=== PATIENT | male | born 1960 | race Caucasian/White ===

== ENCOUNTER 2019-06-13 11:02 | Outpatient (CLI) | payer OTHER ==
[2019-06-13 17:59] LABS: SARS-CoV-2 MS2 Positive; SARS-CoV-2 N Gene Negative; SARS-CoV-2 S Gene Negative; SARS-CoV-2 orf1ab Negative
== END 2019-06-13 11:03 | disposition home or self-care (01) ==
LOC: LABBT 11:02
PROVIDERS: ATTEND Plastic Surgery
DX: Z11.59 Encounter for screening for other viral diseases (principal); C44.90 Unspecified malignant neoplasm of skin, unspecified
CPT/HCPCS: 87635; U0002

== ENCOUNTER 2019-06-14 12:05 | Day surgery (SDC) | payer OTHER ==
[2019-06-12 10:52] VITALS: BMI 42.2
[~2019-06-14 12:05] MED LIST: Dexamethasone 20 MG/5 ML VIAL ONE; EPHEDRINE 25 MG/5 ML SYRINGE ONE; Glycopyrrolate 0.2 MG/ML 5 ML SYRINGE ONE; Lidocaine 1% PF 5 ML VIAL ONE; Ondansetron PF 4 MG/2 ML Vial ONE; PROPOFOL 200 MG/20 ML VIAL ONE; Rocuronium Bromide 10 MG/ML (10ML VIAL) ONE; Succinylcholine Chloride 20 MG/ML 10 ml SYRINGE FS ONE
[2019-06-14] MEDS ORDERED: Bacitracin Zinc Ointment 30 gm TUBE ONE (12:21)
[2019-06-14] MEDS ORDERED: Bupivacaine 0.25% HCL 30 ML VIAL ONE (12:21)
[2019-06-14] MEDS ORDERED: EPINEPHrine 1 MG/ML AMP ONE (12:21)
[2019-06-14] MEDS ORDERED: Heparin 5,000 UNITS/ML VIAL ONE (13:16)
[2019-06-14] MEDS ORDERED: Midazolam HCl 2 mg/2 ml Vial ONE (13:46)
[2019-06-14] MEDS ORDERED: Fentanyl 100 MCG/2 ML VIAL ONE ×2 (13:46→15:15)
[2019-06-14] MEDS ORDERED: PROPOFOL 0 ML ONE (16:13)
--- NOTE | 2019-06-16 05:09 | OP ---
DATE OF PROCEDURE: 06/14/2019 PREOPERATIVE DIAGNOSES: 1. Basal cell carcinoma, right scalp (C44.41). 2. Basal cell carcinoma, left chest (C44.519). 3. Basal cell carcinoma, right shoulder (C44. 612). PROCEDURES: 1. Radical excision of basal cell carcinoma, right scalp (8.5 cm including adequate margins). 2. Split-thickness skin graft, right scalp. 3. Application of wound VAC, right scalp. 4. Wide excision basal cell carcinoma, left chest (7.2 cm including adequate margins). 5. Intermediate closure of right shoulder (9 cm). 6. Intermediate closure of left chest (14 cm). 7. Wide excision of basal cell carcinoma of right shoulder (3.5 cm including adequate margins). DESCRIPTION OF PROCEDURE: Following induction of adequate anesthesia, the patient was prepped and draped in the usual sterile fashion in the supine position. Attention was first turned to the patient's right scalp. The lesion was widely excised down to temporal fascia. This included the cephalad portion of his posterior ear skin as well as the underlying cartilage as this reflected back toward the scalp. The lateral skin was left intact. The dissection inferiorly went down towards sternocleidomastoid and deeper muscle layers. Hemostasis was achieved with cautery as well as suture ligature. The large defect was closed by approximating the anterior root of the helix, which had been excised en bloc with the specimen to advance the helical rim slightly anteriorly and to close that defect. The remainder of the posterior defect was closed with a skin graft. The root of the helix was closed in a single layer of 4-0 Prolene suture. The skin graft was performed by harvesting a 64 cm2, 01/1000 of an inch skin graft from the anterior right thigh, which was then meshed. It was secured to the perimeter of the wound with 4-0 chromic sutures. At the conclusion of the procedure, a wound VAC was placed to secure the skin graft. Attention was then turned to the left chest. The patient had a large elliptical cancer on his left chest. This was widely excised including adequate gross margins. The defect was then closed with 2-0 PDS suture and 4-0 Monocryl suture. Attention was turned to the right shoulder. The patient had a fusiform lesion of his right shoulder towards the superior surface. This was elliptically excised. The lesion was then closed with interrupted 2-0 PDS suture and running 4-0 Monocryl suture. Job ID: [id number]
== END 2019-06-14 21:20 | disposition home or self-care (01) ==
LOC: SDC 12:05
PROVIDERS: ATTEND Plastic Surgery
PROC: 0HR0X74 Replacement of Scalp Skin with Autologous Tissue Substitute, Partial Thickness, External Approach (ICD-10-PCS; principal; 2019-06-14)
PROC: 0HBBXZZ Excision of Right Upper Arm Skin, External Approach (ICD-10-PCS; principal; 2019-06-14)
PROC: 0HB5XZZ Excision of Chest Skin, External Approach (ICD-10-PCS; principal; 2019-06-14)
DX: C44.41 Basal cell carcinoma of skin of scalp and neck (principal); C44.519 Basal cell carcinoma of skin of other part of trunk; C44.612 Basal cell carcinoma of skin of right upper limb, including shoulder; E66.01 Morbid (severe) obesity due to excess calories; Z68.41 Body mass index [BMI] 40.0-44.9, adult; Z79.2 Long term (current) use of antibiotics; Z79.899 Other long term (current) drug therapy
CPT/HCPCS: 88305; 88331; 88332; J0171; J0690; J1100; J1644; J2001; J2250; J2405; J2704; J3010; S0020

== ENCOUNTER 2020-01-27 02:40 | Inpatient (IN) | payer BC, SELFPAY ==
[2020-01-27 03:11] LABS: Prothrombin Time 13.6 sec (12.0-14.7)
[2020-01-27 03:13] LABS: PTT 99.7 sec (22.9-36.1)
[2020-01-27] MEDS ORDERED: Nitroglycerin 100MG/250ML BOT 250 ML ONE (03:13)
[2020-01-27] MEDS ORDERED: Heparin 10,000 UNITS/ 10 ML VIAL ONE (03:13)
[2020-01-27] MEDS ORDERED: Verapamil 5 MG/2 ML VIAL ONE (03:13)
[2020-01-27 03:51] LABS: Troponin I 2.414 ng/mL (< 0.028)
[2020-01-27] MEDS ORDERED: TICAGRELOR 90 MG TABLET ONE (03:56)
--- NOTE | 2020-01-27 03:57 | HP ---
ADMITTING DIAGNOSIS: Acute ST-segment elevation myocardial infarction anteriorly. HISTORY OF PRESENT ILLNESS: This is a very unfortunate, morbidly obese 59-year-old gentleman, who has been having chest pain for two days. He is diabetic. He presented to the hospital in [facility] because he said he could not sleep. He arrived there sometime around midnight, he said. EKG showed that he had what appears to be already evolving changes from an anterior myocardial infarction, was still complaining of chest pain. He has again some ST-segment changes anteriorly, but also already has Q-wave in V1 through V3 compatible most likely with an evolving anterior myocardial infarction. His troponin I was 2.1, potassium was 3.9, BUN was 12, creatinine was 1.04. He was taken by ambulance from [place] to [facility] to [facility]. In the emergency room, he was given heparin and he was started on IV drip. He was also given 5 mg of IV Lopressor. He was given nitroglycerin and aspirin. He was given , 324 mg of aspirin, . At this time, I saw him briefly in the emergency room and I am awaiting the patient's arrival in the cardiac construction laborer. PAST MEDICAL HISTORY: Significant for diabetes and basal cell carcinoma. FAMILY HISTORY: Noncontributory at this time, but I believe he has some family history of heart disease. 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 ALLERGIES: NONE. REVIEW OF SYSTEMS: A 12-point review of systems is relatively unremarkable except what was noted in the history of present illness with his chest discomfort. He describes his chest discomfort as being across the chest and going to the left shoulder. PHYSICAL EXAMINATION: GENERAL: Reveals a morbidly obese gentleman, who is in no acute distress at this time. He is alert. He is oriented. CHEST: Clear to auscultation. CARDIOVASCULAR: Reveals a regular rate and rhythm at this time. I do not hear any gross murmurs. ABDOMEN: Shows morbid obesity. EXTREMITIES: Show no clubbing, cyanosis, or edema. NEUROLOGIC: He appears to be intact. LABORATORY DATA: Pertinent laboratories are already mentioned. His hemoglobin was 15.6. His blood sugar was 302. BNP was 365. IMPRESSION: Acute anterior myocardial infarction. The patient will be taken emergently to the cardiac construction laborer for further evaluation, most likely angioplasty. If there is still vessel that can be reopened, it would appear this is involving the left anterior descending artery. I have explained the procedure and the risks to him to include bleeding, infection, possibility of further myocardial infarction, cerebrovascular accident, renal insufficiency, allergic to contrast reaction, and possibility of , he understands. We will plan for emergent cardiac catheterization. Job ID: [id number]
[2020-01-27] MEDS ORDERED: Nitroglycerin 0.4 MG TAB (25 Tab Bottle) SL PRN (04:25)
[2020-01-27] MEDS ORDERED: Milk Of Magnesia 30 ML UDCUP PO PRN (04:25)
[2020-01-27] MEDS ORDERED: Zolpidem Tartrate 5 MG TAB PO PRN (04:25)
[2020-01-27] MEDS ORDERED: Morphine 2 MG/ML VIAL SLOW IVP PRN (04:25)
[2020-01-27] MEDS ORDERED: Aspirin Chewable 81 MG TAB PO SCH (04:45)
[2020-01-27 07:02] LABS: Troponin I 18.299 ng/mL (< 0.028)
[2020-01-27] MEDS: Lisinopril 2.5 MG TAB PO SCH (08:28)
[2020-01-27] MEDS: Enoxaparin Sodium 100 MG/ML SYRINGE SC SCH ×2 (08:29→22:20)
[2020-01-27] MEDS: Metoprolol Tartrate 25 MG TAB PO SCH ×2 (08:29→22:20)
[2020-01-27] MEDS: TICAGRELOR 90 MG TABLET PO SCH ×2 (08:29→22:21)
[2020-01-27] MEDS: Aspirin Chewable 81 MG TAB PO SCH (08:40)
[2020-01-27] MEDS ORDERED: Metoprolol Tartrate 25 MG TAB PO SCH (09:00)
[2020-01-27] MEDS ORDERED: Iopamidol 370 76% 50 ML VIAL FS ONE (09:18)
[2020-01-27] MEDS ORDERED: Iopamidol 370 76% 100 ML VIAL ONE (09:18)
[2020-01-27] MEDS ORDERED: Dextrose 5% in Water 1,000 ML IV PRN (09:30)
[2020-01-27] MEDS ORDERED: Dextrose 50% Abboject 50 ML SYRINGE IVP PRN (09:30)
[2020-01-27 11:10] LABS: Troponin I 26.344 ng/mL (< 0.028)
[2020-01-27] MEDS: Insulin Regular 300 UNITS/3 ML VIAL SC PRN ×3 (11:36→23:35)
[2020-01-27 13:38] LABS: SARS-CoV-2 NAA Rapid Test DETECTED (NotDetected)
--- NOTE | 2020-01-27 16:53 | CON ---
DATE OF CONSULTATION: 01/27/2020 PRIMARY CARE PROVIDER: Alvino Roberts MD. PRIMARY SERVICE ATTENDING: Gilda Soto MD REASON FOR CONSULT: General medical management. HISTORY OF PRESENT ILLNESS: This is a 59-year-old male, who was admitted under the Cardiology Service after presenting with acute chest pain with acute ST-segment elevation myocardial infarction. The patient underwent emergent cardiac catheterization, undergoing a drug-eluting stent placement to the left anterior descending artery. The patient was treated with Lovenox in addition to aspirin and Lipitor and monitored in the critical care unit. The patient was also noted with severe left ventricular dysfunction with ejection fraction of 30% to 35% on cardiac catheterization. The patient states he had some symptoms approximately 2 weeks prior to this evaluation, however, discounted these symptoms and continued to go to work. The patient states he has no strong family history of coronary artery disease, but does admit to a history of diabetes mellitus for approximately 9 years, poorly controlled. Currently, the patient denies any specific chest pain or shortness of breath and actually feels better in the last 12 hours. PAST MEDICAL HISTORY: 1. Diabetes mellitus, type 2, on oral hypoglycemics, diagnosed x9 years. 2. Basal cell carcinoma, status post excision. PAST SURGICAL HISTORY: Status post multiple basal cell carcinoma removals. CURRENT MEDICATION: Metformin 500 mg p.o. b.i.d. ALLERGIES: NO KNOWN DRUG ALLERGIES. FAMILY HISTORY: Grandmother with late onset diabetes mellitus. SOCIAL HISTORY: Resides in [place], [place]. 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 Denies alcohol, tobacco, or illicit drug use. Functional of all activities of daily living. REVIEW OF SYSTEMS: CONSTITUTIONAL: Negative for weight loss or gain, ability to conduct usual activities. SKIN: Negative for rash, itching. EYES: Negative for double vision, pain. ENT/MOUTH: Negative for nose bleeding, neck stiffness, pain, tenderness. CARDIOVASCULAR: Negative for palpitations, dyspnea on exertion, orthopnea. RESPIRATORY: Negative for shortness of breath, wheezing, cough, hemoptysis, fever or night sweats. GASTROINTESTINAL: Negative for poor appetite, abdominal pain, heartburn, nausea, vomiting, constipation, or diarrhea. GENITOURINARY: Negative for urgency, frequency, dysuria, nocturia. MUSCULOSKELETAL: Negative for pain, swelling. NEUROLOGIC/PSYCHIATRIC: Negative for anxiety, depression. ALLERGY/IMMUNOLOGIC: Negative for skin rash, bleeding tendency. Otherwise negative except as stated per HPI. PHYSICAL EXAMINATION: VITAL SIGNS: On admission, blood pressure 126/72, pulse 61, respiratory rate 17, temperature 98.3 degrees Fahrenheit, and O2 saturation 95% on room air. GENERAL APPEARANCE: This is a 59-year-old male, alert and oriented x3, pleasant, responsive, in no acute distress. HEENT: Pupils are equal, round, and reactive to light and accommodation. Extraocular muscles are intact. No scleral icterus. No conjunctival injection. Nares patent. OP is clear. Teeth in fair repair. NECK: Supple. No cervical adenopathy. No thyromegaly. No carotid bruits. No JVD appreciated. Cervical spine with full active and passive range of motion. No meningeal signs noted. CHEST: Lungs are clear to auscultation bilaterally. CARDIOVASCULAR: S1 and S2 without noted murmur, rub, or gallop. Heart sounds are distant. ABDOMEN: Obese, soft, nontender, and nondistended. Landmarks are difficult to palpate due to the patient's body habitus. EXTREMITIES: Warm and dry with fair turgor. Mild pitting edema to the mid shins bilaterally. Chronic venous stasis changes with leathery skin to bilateral lower extremities. Pulses palpable distally at the dorsalis pedis, posterior tibial, and popliteal arteries bilaterally. Capillary refill less than 2 seconds. NEUROLOGIC: Cranial nerves II through XII are grossly intact. No focal or lateralizing signs appreciated. PERTINENT LABORATORY AND X-RAY FINDINGS: Sodium 135, potassium 3.9, chloride 102, CO2 of 20, BUN 12, creatinine 1.04, estimated GFR of 73, glucose 302, and calcium 8.5. AST 48, ALT of 49, and alkaline phosphatase 86. Troponin I ranged between 2.1 to 26.3. BNP 367. Total cholesterol from 09/27/2018 showed a total of 239, triglycerides 338, HDL 40, and LDL 131. Lipase 18. CBC showed a white blood cell count of 5.7, hemoglobin 15.6, hematocrit 47.5, and platelet count 174. Portable chest x-ray dated 01/27/2020, showed no acute cardiopulmonary process. EKG dated 01/27/2020, by my interpretation shows sinus mechanism, heart rates in the 70s. Attenuated R-waves noted in the precordial leads. T-wave inversion in the precordial leads. Anteroseptal infarct. ASSESSMENT AND PLAN: 1. Acute ST-elevation myocardial infarction. The patient admitted to the Critical Care Unit under the Cardiology Service, undergoing angioplasty with drug-eluting stent placement to the left anterior descending. Continue medical management with aspirin 81 mg daily, Lipitor 80 mg at bedtime, and metoprolol 25 mg b.i.d. Continue Brilinta 90 mg b.i.d. 2. Diabetes mellitus, type 2, uncontrolled. Hold metformin given recent cardiac catheterization with stent placement. Likely will need home insulin therapy. Insulin sliding scale for reflexive coverage. Check A1c level. Dietitian consult. ADA diet when tolerating p.o. intake. 3. Hypertension. Continue metoprolol 25 mg b.i.d. and lisinopril 2.5 mg daily. Serial blood pressure monitoring. 4. Morbid obesity. Heart healthy, low-fat diet. Consult dietitian for any further recommendations and dietary counseling. 5. Hyperlipidemia. Repeat fasting lipid profile. Continue Lipitor 80 mg at bedtime. 6. Prophylaxis. SCDs while in bed. Cardiac rehabilitation for ambulation. 7. Code status: Full. Surrogate medical decision maker is, Rizwana Soto. Thank you for the consult. We will continue to follow with Primary Service. Job ID: [id number]
[2020-01-27 19:04] LABS: Critical Call Chem Troponin I RESULT DECREASING; Troponin I 14.686 ng/mL (< 0.028)
[2020-01-27] MEDS: Atorvastatin Calcium 40 MG TAB PO SCH (22:20)
[2020-01-28 05:21] LABS: #Basophils 0.1 thou/uL (0.0-0.2); #Lymphocytes 1.7 thou/uL (1.20-3.40); #Monocytes 0.8 thou/uL (0.11-0.59); #Neutrophils 5.2 thou/uL (1.40-6.50); %Basophils 0.7 % (0.0-1.0); %Eosinophils 0.5 % (0.0-10.0); %Lymphocytes 21.5 % (21.0-51.0); %Neutrophils 67.3 % (42.0-75.0); Mean Corpuscular HGB CONC 33.7 g/dL (32.0-36.0); Mean Corpuscular Hemoglobin 30.5 pg (27.0-31.0); Mean Corpuscular Volume 90.5 fL (78.0-98.0); Mean Platelet Volume 7.1 fL (7.4-10.4); Platelet Count 209 thou/uL (130-400); RBC Distribution Width 12.2 % (11.5-14.5); Red Blood Cell (RBC) Count 4.92 mill/uL (4.70-6.10); White Blood Cell (WBC) Count 7.8 thou/uL (4.8-10.8)
[2020-01-28 05:22] LABS: Hemoglobin A1c 11.9 % (4.0-6.0)
[2020-01-28 05:41] LABS: ALT (SGPT) 46 U/L (8-55); AST (SGOT) 53 U/L (5-34); Albumin 3.7 g/dL (3.4-4.8); Alkaline Phosphatase 76 U/L (40-110); Anion Gap 15 mmol/L (10-20); BUN (Urea Nitrogen) 14 mg/dL (8.4-25.7); Bilirubin, Total 0.6 mg/dL (0.2-1.2); Calc. Creatinine Clearance 152 mL/min (70-130); Calcium 8.4 mg/dL (7.8-10.44); Carbon Dioxide 23 mmol/L (23-31); Cardiac Risk 5.4 (Less than 4.5); Chloride 100 mmol/L (98-107); Cholesterol 199 mg/dl (< 200 Desired); Globulin 3.1 g/dL (2.4-3.5); Glucose 270 mg/dL (80-115); HDL Cholesterol 37 mg/dL (>60 Neg Risk); LDL Cholesterol, Calculated 119 mg/dL; Potassium 3.8 mmol/L (3.5-5.1); Protein, Total 6.8 g/dL (5.8-8.1); Sodium 134 mmol/L (136-145); Triglycerides 217 mg/dL (Less than 150)
[2020-01-28] MEDS: Insulin Regular 300 UNITS/3 ML VIAL SC PRN ×4 (06:25→22:45)
[2020-01-28] MEDS: Lisinopril 2.5 MG TAB PO SCH (08:57)
[2020-01-28] MEDS: Enoxaparin Sodium 100 MG/ML SYRINGE SC SCH ×2 (08:58→20:02)
[2020-01-28] MEDS: Aspirin Chewable 81 MG TAB PO SCH (08:58)
[2020-01-28] MEDS: Metoprolol Tartrate 25 MG TAB PO SCH ×2 (08:58→20:03)
[2020-01-28] MEDS: TICAGRELOR 90 MG TABLET PO SCH ×2 (08:58→20:03)
--- NOTE | 2020-01-28 16:57 | PDOC.CPN ---
- Subjective Date: 01/28/20 Time: 14:30 Interval history: No overnight events, patient was transferred to COVID unit. No EKG changes overnight. - Review of Systems General: denies: fever/chills, weight/appetite/sleep changes, night sweats, fatigue Respiratory: denies: cough, congestion, shortness of breath, exercise intolerance Cardiovascular: denies: chest pain, palpitation, edema, paroxysmal nocturnal dyspnea, orthopnea Gastrointestinal: denies: nausea, vomiting, diarrhea, constipation, abd pain, GI bleeding Musculoskeletal: denies: pain, tenderness, stiffness, swelling, arthritis/arthralgias Neurological: denies: numbness, syncope, seizure, weakness - Objective Allergies/Adverse Reactions: Allergies Allergy/AdvReac Type Severity Reaction Status Date / Time No Known Allergies Allergy Verified 01/27/20 05:07 Visit Medications: Current Medications Aspirin (Aspirin Chewable 81 Mg Tab) 81 mg PO DAILY [facility] Last Admin: 01/28/20 08:58 Dose: 81 mg Documented by: Atorvastatin Calcium (Atorvastatin Calcium 40 Mg Tab) 80 mg PO HS [facility] Last Admin: 01/27/20 22:20 Dose: 80 mg Documented by: Dextrose/Water (Dextrose 50% Abboject 50 Ml Syringe) 25 gm IVP PRN PRN PRN Reason: HYPOGLYCEMIA PROTOCOL Enoxaparin Sodium (Enoxaparin Sodium 100 Mg/Ml Syringe) 100 mg SC 0900,2100 [facility] Last Admin: 01/28/20 08:58 Dose: 100 mg Documented by: Glucagon (Glucagon 1 Mg/Ml Vial) 1 mg IM PRN PRN PRN Reason: HYPOGLYCEMIA PROTOCOL Dextrose/Water (D5w) 1,000 mls @ 0 mls/hr IV INF PRN PRN Reason: HYPOGLYCEMIA PROTOCOL Insulin Human Regular (Insulin Regular 300 Units/3 Ml Vial) 0 units SC .MODERATE SLIDING SC PRN; Protocol PRN Reason: MODERATE SLIDING SCALE Last Admin: 01/28/20 12:40 Dose: 6 unit Documented by: Insulin Human Regular (Insulin Regular 300 Units/3 Ml Vial) 0 units SC .BEDTIME SLIDING SC PRN PRN Reason: Bedtime Correctional Scale Last Admin: 01/27/20 23:35 Dose: 4 unit Documented by: Lisinopril (Lisinopril 2.5 Mg Tab) 2.5 mg PO DAILY [facility] Last Admin: 01/28/20 08:57 Dose: 2.5 mg Documented by: Magnesium Hydroxide (Milk Of Magnesia 30 Ml Udcup) 30 ml PO Q12H PRN PRN Reason: Constipation Metoprolol Tartrate (Metoprolol Tartrate 25 Mg Tab) 25 mg PO BID [facility] Last Admin: 01/28/20 08:58 Dose: 25 mg Documented by: Morphine Sulfate (Morphine 2 Mg/Ml Vial) 2 mg SLOW IVP Q5MIN PRN PRN Reason: Chest Pain Nitroglycerin (Nitroglycerin 0.4 Mg Tab (25 Tab Bottle)) 0.4 mg SL Q5MIN PRN PRN Reason: Chest Pain Sodium Chloride (Flush - Normal Saline 10 Ml Syringe) 10 ml IVF PRN PRN PRN Reason: Saline Flush Last Admin: 01/28/20 08:58 Dose: 10 ml Documented by: Ticagrelor (Ticagrelor 90 Mg Tablet) 90 mg PO BID [facility] Last Admin: 01/28/20 08:58 Dose: 90 mg Documented by: Zolpidem Tartrate (Zolpidem Tartrate 5 Mg Tab) 5 mg PO HSPRN PRN PRN Reason: Insomnia Vital Signs & Weight: Vital Signs Temp Pulse Resp BP Pulse Ox 01/28/20 12:15 97.6 F 66 18 118/71 97 01/28/20 08:55 97.8 F 70 18 130/74 95 Admit Weight 320 lb Weight 320 lb - Quality Measures Condition: Myocardial Infarction CV meds: Beta Luz: Yes, HANG/ARB: Yes, Statin: Yes, ASA: Yes, Plavi x/Effient/Brilinta: Yes - Physical Exam General: other (Deferred d/t COVID-19.) - Labs Result Diagrams: 01/28/20 05:02 01/28/20 05:02 Troponin/CKMB Troponin I 14.686 ng/mL (< 0.028) H* 01/27/20 18:08 - EKG Interpretation EKG Method: Telemetry EKG: sinus rhythm - Assessment/Plan Assessment/Plan: 1. Acute anterior myocardial infarction: Successful PCI/ Drug eluting stent to the mid LAD 2.75 x 28 mm, dilated to 2.81 mm, no residual stenosis. RCA: proximal 50%, L-circ: 50% prox, Distal OM: 50%, Severely impaired ventricular function EF 30-35%, Distal anterior wall, apex-akinetic. Patient doing well s/p coronary stent placement. No c/o chest pain, no EKG changes. Will order another transthoracic echocardiogram to evaluate ejection fraction and ventricular function. We will continue medical management with Aspirin, Brillinta for at least one year, Lipitor, Lisinopril, Metoprolol. 2. Diabetes mellitus type II: To be treated by primary care service 3. COVID-19 Virus: Antigen for COVID-19 was positive, patient remains relatively asymptomatic for COVID-19, treated by primary care service. Pt. seen and eval. by me. I agree with the A/P by the GARMENT EXAMINER. Joel garcia. RRR. Plan to repeat Covid test. gabi
--- NOTE | 2020-01-28 19:22 | PDOC.HOSPP ---
- Subjective Encounter Date: 01/28/20 Encounter Time: 09:30 Subjective: Patient seen for follow-up for diabetes mellitus type 2. He denies any complaints. - Objective Vital Signs & Weight: Vital Signs (12 hours) Temp Pulse Resp BP Pulse Ox 01/28/20 16:55 98.3 F 75 18 142/76 H 99 01/28/20 12:15 97.6 F 66 18 118/71 97 01/28/20 08:55 97.8 F 70 18 130/74 95 Weight Admit Weight 320 lb Weight 320 lb Most Recent Monitor Data Heart Rate from ECG 60 NIBP 144/116 NIBP BP-Mean 125 Respiration from ECG 17 SpO2 96 I&O: 01/27/20 01/28/20 01/29/20 06:59 06:59 06:59 Intake Total 0 2332.8 957 Output Total 0 750 Balance 0 1582.8 957 Result Diagrams: 01/28/20 05:02 01/28/20 05:02 Additional Labs: Accuchecks 01/28/20 01/28/20 01/28/20 17:54 12:14 06:22 POC Glucose 252 H 290 H 240 H 01/28/20 01/27/20 00:25 22:25 POC Glucose 260 H 342 H Labs and MAR reviewed by me EKG Reviewed by me: Yes (Telemetry shows normal sinus rhythm) Hospitalist ROS - Review of Systems Cardiovascular: denies: chest pain, palpitations, orthopnea, paroxysmal noc. dyspnea, edema, light headedness Gastrointestinal: denies: nausea, vomiting, abdominal pain, diarrhea, constipation, melena, hematochezia - Medication Medications: Active Medications Generic Name Dose Route Start Last Admin Trade Name Freq PRN Reason Stop Dose Admin Aspirin 81 mg 01/27/20 09:00 01/28/20 08:58 Aspirin Chewable 81 Mg Tab PO 81 mg DAILY MIRIAM Administration Atorvastatin Calcium 80 mg 01/27/20 21:00 01/27/20 22:20 Atorvastatin Calcium 40 Mg Tab PO 80 mg HS MIRIAM Administration Enoxaparin Sodium 100 mg 01/27/20 09:00 01/28/20 08:58 Enoxaparin Sodium 100 Mg/Ml Syringe SC 100 mg 0900,2100 MIRIAM Administration Insulin Human Regular 0 units 01/27/20 09:30 01/28/20 18:54 Insulin Regular 300 Units/3 Ml Vial SC 6 unit .MODERATE SLIDING SC PRN Administration MODERATE SLIDING SCALE Protocol Insulin Human Regular 0 units 01/27/20 22:57 01/27/20 23:35 Insulin Regular 300 Units/3 Ml Vial SC 4 unit .BEDTIME SLIDING SC PRN Administration Bedtime Correctional Scale Lisinopril 2.5 mg 01/27/20 09:00 01/28/20 08:57 Lisinopril 2.5 Mg Tab PO 2.5 mg DAILY MIRIAM Administration Metoprolol Tartrate 25 mg 01/27/20 09:00 01/28/20 08:58 Metoprolol Tartrate 25 Mg Tab PO 25 mg BID MIRIAM Administration Sodium Chloride 10 ml 01/27/20 04:25 01/28/20 08:58 Flush - Normal Saline 10 Ml Syringe IVF 10 ml PRN PRN Administration Saline Flush Ticagrelor 90 mg 01/27/20 09:00 01/28/20 08:58 Ticagrelor 90 Mg Tablet PO 90 mg BID MIRIAM Administration - Exam General Appearance: awake alert General - other findings: Morbid obesity Eye: anicteric sclera ENT: normocephalic atraumatic Neck: supple Heart: RRR Respiratory: CTAB Gastrointestinal: soft, non-tender Skin: no rashes Psychiatric: normal affect, normal behavior Hosp A/P (1) Hyponatremia Code(s): E87.1 - HYPO-OSMOLALITY AND HYPONATREMIA Status: Acute (2) Diabetes mellitus type 2 in obese Code(s): E11.69 - TYPE 2 DIABETES MELLITUS WITH OTHER SPECIFIED COMPLICATION; E66.9 - OBESITY, UNSPECIFIED Status: Chronic (3) Morbid obesity with BMI of 40.0-44.9, adult Code(s): E66.01 - MORBID (SEVERE) OBESITY DUE TO EXCESS CALORIES; Z68.41 - BODY MASS INDEX [BMI]40.0-44.9, ADULT Status: Chronic (4) Hypertension Code(s): I10 - ESSENTIAL (PRIMARY) HYPERTENSION Status: Chronic (5) Dyslipidemia Code(s): E78.5 - HYPERLIPIDEMIA, UNSPECIFIED Status: Chronic (6) COVID-19 virus infection Code(s): U07.1 - COVID-19 Status: Acute - Plan Blood sugars are elevated, administer Lantus insulin 10 units at bedtime, continue insulin sliding scale and Accu-Cheks. Hyponatremia mild, likely asym ptomatic. Reasonable control of blood pressure. Continue Lipitor.
[2020-01-28] MEDS: Atorvastatin Calcium 40 MG TAB PO SCH (20:02)
[2020-01-28] MEDS: Insulin Glargine 10 UNITS in Pre-Filled Syringe 1 EACH SC SCH (22:45)
[2020-01-29] MEDS: Insulin Regular 300 UNITS/3 ML VIAL SC PRN ×4 (06:28→20:11)
[2020-01-29 07:30] LABS: SARS-CoV-2 by NAA DETECTED (NotDetected)
[2020-01-29 07:31] LABS: SARS-CoV-2 MS2 Positive; SARS-CoV-2 N Gene Positive; SARS-CoV-2 S Gene Positive; SARS-CoV-2 orf1ab Positive
[2020-01-29] MEDS: Metoprolol Tartrate 25 MG TAB PO SCH ×2 (09:43→19:40)
[2020-01-29] MEDS: Aspirin Chewable 81 MG TAB PO SCH (09:43)
[2020-01-29] MEDS: Lisinopril 2.5 MG TAB PO SCH (09:43)
[2020-01-29] MEDS: Enoxaparin Sodium 100 MG/ML SYRINGE SC SCH ×2 (09:43→19:40)
[2020-01-29] MEDS: TICAGRELOR 90 MG TABLET PO SCH ×2 (09:44→19:41)
[2020-01-29 10:40] LABS: SARS-CoV-2 IgG Ab Non-Reactive (NonReactive); SARS-CoV-2 IgG Index 0.03 S/CO (< 1.40)
--- NOTE | 2020-01-29 15:24 | PDOC.CPN ---
- Subjective Date: 01/29/20 Time: 15:20 Interval history: No overnight events, patient doing well per report, no EKG changes overnight. - Review of Systems General: denies: fever/chills, weight/appetite/sleep changes, night sweats, fatigue Respiratory: denies: cough, congestion, shortness of breath, exercise intolerance Cardiovascular: denies: chest pain, palpitation, edema, paroxysmal nocturnal dyspnea, orthopnea Gastrointestinal: denies: nausea, vomiting, diarrhea, constipation, abd pain, GI bleeding Musculoskeletal: denies: pain, tenderness, stiffness, swelling, arthritis/arthralgias Neurological: denies: numbness, syncope, seizure, weakness - Objective Allergies/Adverse Reactions: Allergies Allergy/AdvReac Type Severity Reaction Status Date / Time No Known Allergies Allergy Verified 01/27/20 05:07 Visit Medications: Current Medications Aspirin (Aspirin Chewable 81 Mg Tab) 81 mg PO DAILY [facility] Last Admin: 01/29/20 09:43 Dose: 81 mg Documented by: Atorvastatin Calcium (Atorvastatin Calcium 40 Mg Tab) 80 mg PO [facility] Last Admin: 01/28/20 20:02 Dose: 80 mg Documented by: Dextrose/Water (Dextrose 50% Abboject 50 Ml Syringe) 25 gm IVP PRN PRN PRN Reason: HYPOGLYCEMIA PROTOCOL Enoxaparin Sodium (Enoxaparin Sodium 100 Mg/Ml Syringe) 100 mg SC 0900,2100 [facility] Last Admin: 01/29/20 09:43 Dose: 100 mg Documented by: Glucagon (Glucagon 1 Mg/Ml Vial) 1 mg IM PRN PRN PRN Reason: HYPOGLYCEMIA PROTOCOL Dextrose/Water (D5w) 1,000 mls @ 0 mls/hr IV INF PRN PRN Reason: HYPOGLYCEMIA PROTOCOL Insulin Glargine 10 units/ (Miscellaneous Medication) 0.1 mls @ 0 mls/hr SC [facility] Last Admin: 01/28/20 22:45 Dose: 0.1 mls Documented by: Insulin Human Regular (Insulin Regular 300 Units/3 Ml Vial) 0 units SC .MODERATE SLIDING SC PRN; Protocol PRN Reason: MODERATE SLIDING SCALE Last Admin: 01/29/20 12:24 Dose: 6 unit Documented by: Insulin Human Regular (Insulin Regular 300 Units/3 Ml Vial) 0 units SC .BEDTIME SLIDING SC PRN PRN Reason: Bedtime Correctional Scale Last Admin: 01/28/20 22:45 Dose: 3 unit Documented by: Lisinopril (Lisinopril 2.5 Mg Tab) 2.5 mg PO DAILY [facility] Last Admin: 01/29/20 09:43 Dose: 2.5 mg Documented by: Magnesium Hydroxide (Milk Of Magnesia 30 Ml Udcup) 30 ml PO Q12H PRN PRN Reason: Constipation Metoprolol Tartrate (Metoprolol Tartrate 25 Mg Tab) 25 mg PO BID [facility] Last Admin: 01/29/20 09:43 Dose: 25 mg Documented by: Morphine Sulfate (Morphine 2 Mg/Ml Vial) 2 mg SLOW IVP Q5MIN PRN PRN Reason: Chest Pain Nitroglycerin (Nitroglycerin 0.4 Mg Tab (25 Tab Bottle)) 0.4 mg SL Q5MIN PRN PRN Reason: Chest Pain Sodium Chloride (Flush - Normal Saline 10 Ml Syringe) 10 ml IVF PRN PRN PRN Reason: Saline Flush Last Admin: 01/28/20 08:58 Dose: 10 ml Documented by: Ticagrelor (Ticagrelor 90 Mg Tablet) 90 mg PO BID [facility] Last Admin: 01/29/20 09:44 Dose: 90 mg Documented by: Zolpidem Tartrate (Zolpidem Tartrate 5 Mg Tab) 5 mg PO HSPRN PRN PRN Reason: Insomnia Vital Signs & Weight: Vital Signs Temp Pulse Resp BP Pulse Ox 01/29/20 15:13 99.2 F 75 28 H 143/67 H 96 01/29/20 12:10 98.5 F 67 16 121/65 96 01/29/20 09:43 80 01/29/20 09:40 98.4 F 81 22 H 120/61 96 Admit Weight 320 lb Weight 320 lb - Quality Measures Condition: Myocardial Infarction CV meds: Beta Luz: Yes, HANG/ARB: Yes, Statin: Yes, ASA: Yes, Plavix/Effient/Brilinta: Yes - Physical Exam General: other (Deferred d/t COVID-19) - Labs Result Diagrams: 01/28/20 05:02 01/28/20 05:02 Troponin/CKMB Troponin I 14.686 ng/mL (< 0.028) H* 01/27/20 18:08 - EKG Interpretation EKG Method: Telemetry EKG: sinus rhythm - Assessment/Plan Assessment/Plan: 1. Acute anterior myocardial infarction: Successful PCI/ Drug eluting stent to the mid LAD 2.75 x 28 mm, dilated to 2.81 mm, no residual stenosis. RCA: proximal 50%, L-circ: 50% prox, Distal OM: 50%, Severely impaired ventricular function EF 30-35%, Distal anterior wall, apex-akinetic. Patient doing well s/p coronary stent placement. No c/o chest pain, no EKG changes. Echocardiogram may be repeated in office when patient is COVID-19 negative. Unable to repeat ECHO in hospital d/t COVID positive status. We will continue medical management with Aspirin, Brillinta for at least one year, Lipitor, Lisinopril, Metoprolol. Will add Spironolactone 25 mg Daily d/t reduced EF. Will also have patient evaluated for LifeVest d/t decreased EF after an acute [place]. 2. Diabetes mellitus type II: To be treated by primary care service 3. COVID-19 Virus: Antigen for COVID-19 was positive, patient remains relatively asymptomatic for COVID-19, treated by primary care service. Stable for discharge from cardiology standpoint once patient is fitted for LifeVest. Will need follow-up in 4 weeks when COVID negative with cardiology. Chart reviewed.I agree with thne plan by the MATERIAL REQUISITIONER.No new events. Agree with Life- Vest.If EF improveshemay cierra henry,he may be a candidatefor an AICD after 40 days since he is post [place]. gabi
[2020-01-29] MEDS: Atorvastatin Calcium 40 MG TAB PO SCH (19:40)
[2020-01-29] MEDS: Insulin Glargine 10 UNITS in Pre-Filled Syringe 1 EACH SC SCH (19:45)
[2020-01-29] MEDS: Acetaminophen 325 MG TAB PO PRN (21:11)
[2020-01-30] MEDS: Acetaminophen 325 MG TAB PO PRN ×2 (04:23→19:40)
[2020-01-30] MEDS: Insulin Regular 300 UNITS/3 ML VIAL SC PRN ×3 (06:01→16:41)
[2020-01-30] MEDS: TICAGRELOR 90 MG TABLET PO SCH ×2 (08:33→23:42)
[2020-01-30] MEDS: Lisinopril 2.5 MG TAB PO SCH (08:33)
[2020-01-30] MEDS: Enoxaparin Sodium 100 MG/ML SYRINGE SC SCH ×2 (08:34→23:40)
[2020-01-30] MEDS: Spironolactone 25 MG TAB PO SCH (08:34)
[2020-01-30] MEDS: Metoprolol Tartrate 25 MG TAB PO SCH ×2 (08:34→19:39)
[2020-01-30] MEDS: Aspirin Chewable 81 MG TAB PO SCH (08:34)
[2020-01-30] MEDS ORDERED: Iopamidol 370 76% 100 ML VIAL ONE (11:36)
[2020-01-30 12:43] VITALS: BMI 43.4
--- NOTE | 2020-01-30 16:49 | PDOC.CPN ---
- Subjective Date: 01/30/20 Time: 16:46 Interval history: Patient doing well per nurse report, no overnight events, his heart rhythm remains in sinus rhythm, no ectopy or EKG changes overnight. - Review of Systems General: denies: fever/chills, weight/appetite/sleep changes, night sweats, fatigue Respiratory: denies: cough, congestion, shortness of breath, exercise intolerance Cardiovascular: denies: chest pain, palpitation, edema, paroxysmal nocturnal dyspnea, orthopnea Gastrointestinal: denies: nausea, vomiting, diarrhea, constipation, abd pain, GI bleeding Musculoskeletal: denies: pain, tenderness, stiffness, swelling, arthritis/arthralgias Neurological: denies: numbness, syncope, seizure, weakness - Objective Allergies/Adverse Reactions: Allergies Allergy/AdvReac Type Severity Reaction Status Date / Time No Known Allergies Allergy Verified 01/27/20 05:07 Visit Medications: Current Medications Acetaminophen (Acetaminophen 325 Mg Tab) 650 mg PO Q4H PRN PRN Reason: Headache/Fever/Mild Pain (1-3) Last Admin: 01/30/20 04:23 Dose: 650 mg Documented by: Aspirin (Aspirin Chewable 81 Mg Tab) 81 mg PO DAILY [facility] Last Admin: 01/30/20 08:34 Dose: 81 mg Documented by: Atorvastatin Calcium (Atorvastatin Calcium 40 Mg Tab) 80 mg PO HS [facility] Last Admin: 01/29/20 19:40 Dose: 80 mg Documented by: Dextrose/Water (Dextrose 50% Abboject 50 Ml Syringe) 25 gm IVP PRN PRN PRN Reason: HYPOGLYCEMIA PROTOCOL Enoxaparin Sodium (Enoxaparin Sodium 100 Mg/Ml Syringe) 100 mg SC 0900,2100 [facility] Last Admin: 01/30/20 08:34 Dose: 100 mg Documented by: Glucagon (Glucagon 1 Mg/Ml Vial) 1 mg IM PRN PRN PRN Reason: HYPOGLYCEMIA PROTOCOL Dextrose/Water (D5w) 1,000 mls @ 0 mls/hr IV INF PRN PRN Reason: HYPOGLYCEMIA PROTOCOL Insulin Glargine 10 units/ (Miscellaneous Medication) 0.1 mls @ 0 mls/hr SC [facility] Last Admin: 01/29/20 19:45 Dose: 0.1 mls Documented by: Insulin Human Regular (Insulin Regular 300 Units/3 Ml Vial) 0 units SC .MODERATE SLIDING SC PRN; Protocol PRN Reason: MODERATE SLIDING SCALE Last Admin: 01/30/20 16:41 Dose: 4 unit Documented by: Insulin Human Regular (Insulin Regular 300 Units/3 Ml Vial) 0 units SC .BEDTIME SLIDING SC PRN PRN Reason: Bedtime Correctional Scale Last Admin: 01/29/20 20:11 Dose: 3 unit Documented by: Lisinopril (Lisinopril 2.5 Mg Tab) 2.5 mg PO DAILY [facility] Last Admin: 01/30/20 08:33 Dose: 2.5 mg Documented by: Magnesium Hydroxide (Milk Of Magnesia 30 Ml Udcup) 30 ml PO Q12H PRN PRN Reason: Constipation Metoprolol Tartrate (Metoprolol Tartrate 25 Mg Tab) 25 mg PO BID [facility] Last Admin: 01/30/20 08:34 Dose: 25 mg Documented by: Morphine Sulfate (Morphine 2 Mg/Ml Vial) 2 mg SLOW IVP Q5MIN PRN PRN Reason: Chest Pain Nitroglycerin (Nitroglycerin 0.4 Mg Tab (25 Tab Bottle)) 0.4 mg SL Q5MIN PRN PRN Reason: Chest Pain Sodium Chloride (Flush - Normal Saline 10 Ml Syringe) 10 ml IVF PRN PRN PRN Reason: Saline Flush Last Admin: 01/28/20 08:58 Dose: 10 ml Documented by: Spironolactone (Spironolactone 25 Mg Tab) 25 mg PO QAM-WM [facility] Last Admin: 01/30/20 08:34 Dose: 25 mg Documented by: Ticagrelor (Ticagrelor 90 Mg Tablet) 90 mg PO BID [facility] Last Admin: 01/30/20 08:33 Dose: 90 mg Documented by: Zolpidem Tartrate (Zolpidem Tartrate 5 Mg Tab) 5 mg PO HSPRN PRN PRN Reason: Insomnia Vital Signs & Weight: Vital Signs Temp Pulse Resp BP BP Pulse Ox 01/30/20 11:40 98.2 F 84 20 126/69 96 01/30/20 11:05 98.2 F 84 20 126/69 96 01/30/20 08:35 98.1 F 81 19 162/90 H 97 01/30/20 08:33 76 01/30/20 04:53 99.8 F H Admit Weight 320 lb Weight 329 lb 4.8 oz - Quality Measures Condition: Myocardial Infarction CV meds: Beta Lzu: Yes, HANG/ARB: Yes, Statin: Yes, ASA: Yes, Plavix/ Effient/Brilinta: Yes - Physical Exam General: other (Deferred d/t COVID-19) - Labs Result Diagrams: 01/28/20 05:02 01/28/20 05:02 Troponin/CKMB Troponin I 14.686 ng/mL (< 0.028) H* 01/27/20 18:08 - EKG Interpretation EKG Method: Telemetry EKG: sinus rhythm - Assessment/Plan Assessment/Plan: 1. Acute anterior myocardial infarction: Successful PCI/ Drug eluting stent to the mid LAD 2.75 x 28 mm, dilated to 2.81 mm, no residual stenosis. RCA: proximal 50%, L-circ: 50% prox, Distal OM: 50%, Severely impaired ventricular function EF 30-35%, Distal anterior wall, apex-akinetic. Patient doing well s/p coronary stent placement. No c/o chest pain, no EKG changes. Echocardiogram may be repeated in office when patient is COVID-19 negative. Unable to repeat ECHO in hospital d/t COVID positive status. We will continue medical management with Aspirin, Brillinta for at least one year, Lipitor, Lisinopril, Metoprolol and Spironolactone. 2. Diabetes mellitus type II: To be treated by primary care service 3. COVID-19 Virus: Antigen for COVID-19 was positive, patient remains relatively asymptomatic for COVID-19, he is beginning to lose his taste & smell. treated by primary care service. Patient unable to wear lifevest.Stable for discharge from cardiology standpoint. Will need follow-up in 4 weeks when COVID negative with cardiology.
--- NOTE | 2020-01-30 17:31 | PDOC.HOSPP ---
- Subjective Encounter Date: 01/30/20 Encounter Time: 17:30 Subjective: Patient seen for follow-up regarding COVID-19 infection. He reports that he cannot taste his food. He denies any fevers. Reports generalized weakness. He denies nausea or vomiting. - Objective Vital Signs & Weight: Vital Signs (12 hours) Temp Pulse Resp BP BP Pulse Ox 01/30/20 15:45 98.2 F 81 20 145/79 H 97 01/30/20 11:40 98.2 F 84 20 126/69 96 01/30/20 11:05 98.2 F 84 20 126/69 96 01/30/20 08:35 98.1 F 81 19 162/90 H 97 01/30/20 08:33 76 Weight Admit Weight 320 lb Weight 329 lb 4.8 oz Most Recent Monitor Data Heart Rate from ECG 60 NIBP 144/116 NIBP BP-Mean 125 Respiration from ECG 17 SpO2 96 I&O: 01/29/20 01/30/20 01/31/20 06:59 06:59 06:59 Intake Total 1707 2136 Balance 1707 2136 Result Diagrams: 01/28/20 05:02 01/28/20 05:02 Additional Labs: Accuchecks 01/30/20 01/30/20 01/30/20 15:56 11:05 05:42 POC Glucose 228 H 283 H 245 H 01/29/20 01/29/20 19:49 17:28 POC Glucose 273 H 266 H I reviewed patient's labs and MAR EKG Reviewed by me: Yes (Telemetry shows normal sinus rhythm) Hospitalist ROS - Review of Systems Constitutional: reports: weakness ENT: reports: other (Loss of taste) Respiratory: denies: cough, shortness of breath, SOB with excertion, pleuritic pain, wheezing Cardiovascular: denies: chest pain, palpitations, orthopnea, paroxysmal noc. dyspnea, edema, light headedness - Medication Medications: Active Medications Generic Name Dose Route Start Last Admin Trade Name Freq PRN Reason Stop Dose Admin Acetaminophen 650 mg 01/29/20 20:25 01/30/20 04:23 Acetaminophen 325 Mg Tab PO 650 mg Q4H PRN Administration Headache/Fever/Mild Pain (1-3) Aspirin 81 mg 01/27/20 09:00 01/30/20 08:34 Aspirin Chewable 81 Mg Tab PO 81 mg DAILY MIRIAM Administration Atorvastatin Calcium 80 mg 01/27/20 21:00 01/29/20 19:40 Atorvastatin Calcium 40 Mg Tab PO 80 mg HS [facility]IAM Administration Enoxaparin Sodium 100 mg 01/27/20 09:00 01/30/20 08:34 Enoxaparin Sodium 100 Mg/Ml Syringe SC 100 mg 0900,2100 [facility] Administration Insulin Glargine 10 units/ 0.1 mls @ 0 mls/hr 01/28/20 21:00 01/29/20 19:45 Miscellaneous Medication SC 0.1 mls HS MIRIAM Administration Insulin Human Regular 0 units 01/27/20 09:30 01/30/20 16:41 Insulin Regular 300 Units/3 Ml Vial SC 4 unit .MODERATE SLIDING SC PRN Administration MODERATE SLIDING SCALE Protocol Insulin Human Regular 0 units 01/27/20 22:57 01/29/20 20:11 Insulin Regular 300 Units/3 Ml Vial SC 3 unit .BEDTIME SLIDING SC PRN Administration Bedtime Correctional Scale Lisinopril 2.5 mg 01/27/20 09:00 01/30/20 08:33 Lisinopril 2.5 Mg Tab PO 2.5 mg DAILY [facility]IAM Administration Metoprolol Tartrate 25 mg 01/27/20 09:00 01/30/20 08:34 Metoprolol Tartrate 25 Mg Tab PO 25 mg BID [facility]IAM Administration Sodium Chloride 10 ml 01/27/20 04:25 01/28/20 08:58 Flush - Normal Saline 10 Ml Syringe IVF 10 ml PRN PRN Administration Saline Flush Spironolactone 25 mg 01/30/20 08:00 01/30/20 08:34 Spironolactone 25 Mg Tab PO 25 mg QAM-WM [facility] Administration Ticagrelor 90 mg 01/27/20 09:00 01/30/20 08:33 Ticagrelor 90 Mg Tablet PO 90 mg BID [facility]IAM Administration - Exam General - other findings: Morbid obesity ENT: moist mucosa Neck: supple Heart: RRR Respiratory: CTAB, no wheezes, no rales, no ronchi Gastrointestinal: soft, non-tender Skin: no rashes Psychiatric: normal affect, normal behavior Hosp A/P (1) COVID-19 virus infection Code(s): U07.1 - COVID-19 Status: Acute (2) Hyponatremia Code(s): E87.1 - HYPO-OSMOLALITY AND HYPONATREMIA Status: Acute (3) Diabetes mellitus type 2 in obese Code(s): E11.69 - TYPE 2 DIABETES MELLITUS WITH OTHER SPECIFIED COMPLICATION; E66.9 - OBESITY, UNSPECIFIED Status: Chronic (4) Morbid obesity with BMI of 40.0-44.9, adult Code(s): E66.01 - MORBID (SEVERE) OBESITY DUE TO EXCESS CALORIES; Z68.41 - BODY MASS INDEX [BMI]40.0-44.9, ADULT Status: Chronic (5) Hypertension Code(s): I10 - ESSENTIAL (PRIMARY) HYPERTENSION Status: Chronic (6) Dyslipidemia Code(s): E78.5 - HYPERLIPIDEMIA, UNSPECIFIED Status: Chronic - Plan Blood sugars are elevated, Lantus to 15 units at bedtime. continue insulin sliding scale and Accu-Cheks. Hyponatremia mild, likely asymptomatic. Continue Lipitor. Patient is concerned regarding COVID-19 infection. However, he is asymptomatic in terms of respiratory complaints. He is not tachypneic and not hypoxic. He does not qualify for steroids at this time. Will check chest x-ray to rule out any infiltrates. We will also check inflammatory markers. We will start him on zinc and vitamin C. At this point in time, patient can be safely discharged home by the admitting service unless he develops hypoxia or other complications necessitating hospitalization. Patient should follow-up with his primary care provider to look into the possibility of receiving monoclonal antibodies which are given only in the outpatient setting, to prevent hospitalization.
[2020-01-30] MEDS ORDERED: Zinc Sulfate 220 MG CAP PO SCH (18:00)
[2020-01-30] MEDS ORDERED: Ascorbic Acid 500 mg Chewable Tablet PO SCH (18:00)
[2020-01-30 18:21] LABS: #Lymphocytes 0.9 thou/uL (1.20-3.40); #Monocytes 0.4 thou/uL (0.11-0.59); #Neutrophils 4.6 thou/uL (1.40-6.50); %Basophils 0.5 % (0.0-1.0); %Eosinophils 0.2 % (0.0-10.0); %Lymphocytes 15.4 % (21.0-51.0); %Monocytes 6.2 % (0.0-10.0); %Neutrophils 77.7 % (42.0-75.0); Hemoglobin 14.4 g/dL (14.0-18.0); Mean Corpuscular HGB CONC 34.3 g/dL (32.0-36.0); Mean Corpuscular Hemoglobin 31.3 pg (27.0-31.0); Mean Corpuscular Volume 91.2 fL (78.0-98.0); Mean Platelet Volume 7.4 fL (7.4-10.4); Platelet Count 137 thou/uL (130-400); RBC Distribution Width 12.1 % (11.5-14.5); Red Blood Cell (RBC) Count 4.59 mill/uL (4.70-6.10); White Blood Cell (WBC) Count 5.9 thou/uL (4.8-10.8)
[2020-01-30 18:42] LABS: ALT (SGPT) 51 U/L (8-55); AST (SGOT) 54 U/L (5-34); Albumin 3.7 g/dL (3.4-4.8); Alkaline Phosphatase 63 U/L (40-110); Anion Gap 15 mmol/L (10-20); BUN (Urea Nitrogen) 14 mg/dL (8.4-25.7); Bilirubin, Total 0.5 mg/dL (0.2-1.2); Calc. Creatinine Clearance 144 mL/min (70-130); Calcium 8.2 mg/dL (7.8-10.44); Carbon Dioxide 22 mmol/L (23-31); Chloride 97 mmol/L (98-107); Glucose 223 mg/dL (80-115); Potassium 4.1 mmol/L (3.5-5.1); Protein, Total 6.7 g/dL (5.8-8.1); Sodium 130 mmol/L (136-145)
--- NOTE | 2020-01-30 19:10 | RAD ---
CHEST ONE VIEW: 01/30/20 INDICATION: History of COVID-19 infection. COMPARISON: Prior exam dated 01/27/20. FINDINGS: There are new patchy air space opacities within the right lower lobe and left mid lung suspicious for pneumonia. There is mild cardiomegaly. No pleural effusion or pneumothorax is evident. IMPRESSION: Findings suspicious for bilateral pneumonia, new from the prior exam. POS: BH
--- NOTE | 2020-01-30 20:31 | CT ---
CTA OF THE THORAX UTILIZING IV CONTRAST, PE PROTOCOL AND 3D REFORMATTED IMAGIN01/30/20 INDICATIONS: History of dyspnea and COVID positive diagnosis. Concern for pulmonary embolism. COMPARISON: No CT comparisons are available. FINDINGS: No definite central or segmental pulmonary embolus is demonstrated. There is a very small pericardial effusion. No definite pathologically enlarged lymph nodes are evident. There are coronary artery and thoracic aortic calcifications. There are multiple patchy peripheral ground glass air space nodular opacities within both lungs suspicious for an atypical pneumonia. No pleural effusion is evident. The visualized upper abdomen demonstrates fatty infiltration of the liver. No definite acute osseous abn ormality is evident. IMPRESSION: 1. No central or segmental pulmonary embolus evident. 2. Patchy peripheral ground glass air space opacities suspicious for an atypical infectious proc ess. This can be seen with viral pneumonia such as COVID-19. 3. Small pericardial effusion. 4. Fatty infiltration of the liver. POS: BH
[2020-01-30] MEDS ORDERED: Insulin Glargine 15 UNITS in Pre-Filled Syringe SC SCH (21:00)
[2020-01-30] MEDS ORDERED: Albuterol Sulfate 2.5 mg/3 ml Neb NEB PRN (21:30)
[2020-01-30] MEDS: Atorvastatin Calcium 40 MG TAB PO SCH (23:43)
[2020-01-30] MEDS: Albuterol 200 PUFF (6.7GM INHALER) INH PRN (23:46)
[2020-01-31] MEDS: Albuterol 200 PUFF (6.7GM INHALER) INH PRN (06:20)
[2020-01-31] MEDS: Insulin Regular 300 UNITS/3 ML VIAL SC PRN ×2 (06:20→12:10)
[2020-01-31 08:11] LABS: #Lymphocytes 0.8 thou/uL (1.20-3.40); #Monocytes 0.3 thou/uL (0.11-0.59); #Neutrophils 4.8 thou/uL (1.40-6.50); %Basophils 0.7 % (0.0-1.0); %Eosinophils 0.2 % (0.0-10.0); %Lymphocytes 13.6 % (21.0-51.0); %Monocytes 5.2 % (0.0-10.0); %Neutrophils 80.4 % (42.0-75.0); Mean Corpuscular HGB CONC 34.7 g/dL (32.0-36.0); Mean Corpuscular Hemoglobin 31.4 pg (27.0-31.0); Mean Corpuscular Volume 90.6 fL (78.0-98.0); Mean Platelet Volume 7.6 fL (7.4-10.4); Platelet Count 130 thou/uL (130-400); Red Blood Cell (RBC) Count 4.44 mill/uL (4.70-6.10); White Blood Cell (WBC) Count 5.9 thou/uL (4.8-10.8)
[2020-01-31 08:42] LABS: ALT (SGPT) 52 U/L (8-55); AST (SGOT) 54 U/L (5-34); Albumin 3.3 g/dL (3.4-4.8); Alkaline Phosphatase 59 U/L (40-110); Anion Gap 15 mmol/L (10-20); BUN (Urea Nitrogen) 14 mg/dL (8.4-25.7); Bilirubin, Total 0.4 mg/dL (0.2-1.2); Calc. Creatinine Clearance 162 mL/min (70-130); Carbon Dioxide 21 mmol/L (23-31); Chloride 97 mmol/L (98-107); Globulin 2.9 g/dL (2.4-3.5); Glucose 277 mg/dL (80-115); Potassium 3.7 mmol/L (3.5-5.1); Protein, Total 6.2 g/dL (5.8-8.1); Sodium 129 mmol/L (136-145)
[2020-01-31] MEDS ORDERED: Zinc Sulfate 220 MG CAP PO SCH (09:00)
[2020-01-31] MEDS ORDERED: Ascorbic Acid 500 mg Chewable Tablet PO SCH (09:00)
[2020-01-31] MEDS ORDERED: Lisinopril 5 MG TAB PO SCH (09:00)
[2020-01-31] MEDS: Aspirin Chewable 81 MG TAB PO SCH (09:50)
[2020-01-31] MEDS: Metoprolol Tartrate 25 MG TAB PO SCH (09:51)
[2020-01-31] MEDS: TICAGRELOR 90 MG TABLET PO SCH (09:51)
[2020-01-31] MEDS: Spironolactone 25 MG TAB PO SCH (09:52)
[2020-01-31] MEDS: Enoxaparin Sodium 100 MG/ML SYRINGE SC SCH (09:52)
[2020-01-31 12:04] VITALS: BP 128/63; TEMP 98.4
--- NOTE | 2020-02-01 02:03 | DIS ---
DATE OF ADMISSION: 01/27/2020 DATE OF DISCHARGE: 01/31/2020 CONSULT: Hospitalist Service. PRIMARY DIAGNOSES: 1. Acute ST-segment elevation myocardial infarction anteriorly. 2. Diabetes type 2. 3. Hypertension. 4. Hypercholesterolemia. 5. Coronavirus disease 2019 virus. SECONDARY DIAGNOSES: 1. Acute ST-segment elevation myocardial infarction anteriorly. 2. Diabetes type 2. 3. Hypertension. 4. Hypercholesterolemia. 5. Coronavirus disease 2019 virus. DISCHARGE MEDICATIONS: Include: 1. Metformin 500 mg twice daily with meals. 2. Spironolactone 25 mg daily. 3. Aspirin 81 mg daily. 4. Brilinta 90 mg twice daily. 5. Atorvastatin 80 mg at night once a day. 6. Nitroglycerin 0.4 mg sublingual every 5 minutes as needed for chest pain. 7. Albuterol sulfate inhaler as needed for wheezing. 8. Metoprolol succinate 50 mg daily. 9. Lisinopril 5 mg twice daily. HISTORY OF PRESENT ILLNESS AND HOSPITAL CARE: The patient arrived to the emergency room for an acute ST-segment elevation myocardial infarction. He was emergently taken to the laboratory chemist for an acute STEMI, and he had a left heart catheterization with a 3.0 x 16 mm drug-eluting stent placed to his LAD. Post procedure, he had no complications. He had no significant signs and symptoms of COVID until yesterday, January 29, where he complained of feeling weak, and his chest x-ray revealed possible viral pneumonia. His oxygen saturation levels have remained elevated at 96% on room air, and his weakness is feeling better today. He has had no recurrent episodes of chest pain, shortness of breath, dyspnea on exertion, orthopnea, increased edema to his bilateral extremities, or any type of ventricular arrhythmias after his stent placement. DISCHARGE INSTRUCTIONS: He will be discharged home. Activity: As tolerated. Diet: He needs a heart-healthy, low-sodium, diabetic diet. He will need to follow up with his primary care doctor in 2 to 4 weeks as well as Cardiology in 2 to 4 weeks for a repeat echo when he is COVID negative. Job ID: [id number]
--- NOTE | 2020-02-01 11:00 | EKG ---
Test Reason : Blood Pressure : / mmHG Vent. Rate : 069 BPM Atrial Rate : 069 BPM P-R Int : 190 ms QRS Dur : 090 ms QT Int : 464 ms P-R-T Axes : 056 070 077 degrees QTc Int : 497 ms Normal sinus rhythm Septal infarct , age undetermined T wave abnormality, consider anterior ischemia Abnormal ECG Confirmed by TYSHAWN SILVA DO ([id number]), ecommerce analyst KRYSTLE GIORDANO ([id number]) on 02/01/2020 11:00:09 AM Referred By: Confirmed By:TYSHAWN SILVA DO
== END 2020-01-31 15:16 | disposition home or self-care (01) | DRG 246 ==
LOC: ERS 02:40 → CCU 03:15 → 2SW 16:59
PROVIDERS: ADMIT Internal Medicine Cardiovascular Disease; ATTEND Internal Medicine Cardiovascular Disease
PROC: 027034Z Dilation of Coronary Artery, One Artery with Drug-eluting Intraluminal Device, Percutaneous Approach (ICD-10-PCS; principal; 2020-01-27)
PROC: 02C03ZZ Extirpation of Matter from Coronary Artery, One Artery, Percutaneous Approach (ICD-10-PCS; 2020-01-27)
PROC: 4A023N7 Measurement of Cardiac Sampling and Pressure, Left Heart, Percutaneous Approach (ICD-10-PCS; 2020-01-27)
PROC: B2111ZZ Fluoroscopy of Multiple Coronary Arteries using Low Osmolar Contrast (ICD-10-PCS; 2020-01-27)
PROC: B2151ZZ Fluoroscopy of Left Heart using Low Osmolar Contrast (ICD-10-PCS; 2020-01-27)
PROC: 8E0ZXY6 Isolation (ICD-10-PCS; 2020-01-27)
DX: I21.02 ST elevation (STEMI) myocardial infarction involving left anterior descending coronary artery (principal); U07.1 COVID-19; J12.89 Other viral pneumonia; Z68.41 Body mass index [BMI] 40.0-44.9, adult; E87.1 Hypo-osmolality and hyponatremia; I10 Essential (primary) hypertension; E78.00 Pure hypercholesterolemia, unspecified; E66.01 Morbid (severe) obesity due to excess calories; Z79.84 Long term (current) use of oral hypoglycemic drugs; Z85.828 Personal history of other malignant neoplasm of skin; E11.65 Type 2 diabetes mellitus with hyperglycemia
CPT/HCPCS: 36415; 36416; 71045; 71275; 80053; 80061; 82565; 82728; 83036; 83615; 85025; 85347; 85379; 85610; 85730; 86140; 86769; 87635; 92941; 93005; 93010; 93458; 93798; 94760; 97139; C1874; C9606; J1644; J1650; J1815; Q9967; U0002; U0003

== ENCOUNTER 2020-02-24 17:25 | Emergency (ER) | payer BC ==
[~2020-02-24 17:25] MED LIST changes: -Dexamethasone 20 MG/5 ML VIAL ONE; -EPHEDRINE 25 MG/5 ML SYRINGE ONE; -Glycopyrrolate 0.2 MG/ML 5 ML SYRINGE ONE; +Iopamidol-370 76% 500 ML 1 ML ONE; -Lidocaine 1% PF 5 ML VIAL ONE; -Ondansetron PF 4 MG/2 ML Vial ONE; -PROPOFOL 200 MG/20 ML VIAL ONE; -Rocuronium Bromide 10 MG/ML (10ML VIAL) ONE; -Succinylcholine Chloride 20 MG/ML 10 ml SYRINGE FS ONE
[2020-02-24] MEDS ORDERED: Nitroglycerin 2% Ointment 1 INCH/1 GM Packet ONE (17:40)
[2020-02-24 18:06] LABS: #Basophils 0.1 thou/uL (0.0-0.2); #Eosinphils 0.1 thou/uL (0.0-0.7); #Lymphocytes 2.2 thou/uL (1.20-3.40); #Monocytes 0.6 thou/uL (0.11-0.59); #Neutrophils 4.7 thou/uL (1.40-6.50); %Lymphocytes 28.8 % (21.0-51.0); %Monocytes 7.4 % (0.0-10.0); %Neutrophils 61.8 % (42.0-75.0); Hemoglobin 13.1 g/dL (14.0-18.0); Mean Corpuscular HGB CONC 33.5 g/dL (32.0-36.0); Mean Corpuscular Hemoglobin 30.3 pg (27.0-31.0); Mean Corpuscular Volume 90.6 fL (78.0-98.0); Mean Platelet Volume 7.3 fL (7.4-10.4); Platelet Count 226 thou/uL (130-400); RBC Distribution Width 13.8 % (11.5-14.5); Red Blood Cell (RBC) Count 4.31 mill/uL (4.70-6.10); White Blood Cell (WBC) Count 7.7 thou/uL (4.8-10.8)
--- NOTE | 2020-02-24 18:10 | RAD ---
Portable frontal chest radiograph: 02/24/2020 COMPARISON: 01/30/2020 HISTORY: Chest pain, recent heart attack FINDINGS: Stable heart and mediastinal contours. No pneumothorax or large volume pleural effusion. Th ere is a linear interstitial density in the perihilar regions and both lung bases, right greater than left, not definitely seen on the prior exam. IMPRESSION: Bibasilar linear interstitial density, new when compared to prior imaging. Findings could be related to edema or nonspecific infectious pneumonitis. This includes Covid pneumonia in the proper clinical setting.
[2020-02-24 18:28] LABS: ALT (SGPT) 47 U/L (8-55); AST (SGOT) 29 U/L (5-34); Albumin 4.1 g/dL (3.4-4.8); Alkaline Phosphatase 111 U/L (40-110); Anion Gap 16 mmol/L (10-20); BUN (Urea Nitrogen) 21 mg/dL (8.4-25.7); Bilirubin, Total 0.8 mg/dL (0.2-1.2); CK (CPK) 73 U/L (30-200); Calc. Creatinine Clearance 0 mL/min (70-130); Calcium 8.9 mg/dL (7.8-10.44); Carbon Dioxide 24 mmol/L (23-31); Chloride 99 mmol/L (98-107); Globulin 3.1 g/dL (2.4-3.5); Glucose 319 mg/dL (80-115); Lipase 39 U/L (8-78); Potassium 4.1 mmol/L (3.5-5.1); Protein, Total 7.2 g/dL (5.8-8.1); Sodium 135 mmol/L (136-145)
[2020-02-24] MEDS ORDERED: Aspirin Chewable 81 MG TAB ONE (18:33)
--- NOTE | 2020-02-24 19:12 | CT ---
CT angiogram chest: 02/24/2020 COMPARISON: 01/30/2020 HISTORY: Chest pain TECHNIQUE: Axial CT imaging obtained at 2.5 mm intervals through the chest with IV contrast using CT angiogram protocol. Coronal and sagittal 3-D reformatted imaging obtained. FINDINGS: The partially imaged upper abdomen demonstrates no acute findings. No pleural, pericardial, or mediastinal fluid is noted. Coronary arterial calcification and probable coronary arterial stent material present. No axillary lymphadenopathy is noted. No hilar or mediastinal lymphadenopathy is evident. Review of the pulmonary arterial vasculature demonstrates no evidence for acute pulmonary arterial em bolism. There is multifocal peripheral increased interstitial density with superimposed multifocal peripheral groundglass opacity. This is diffuse peripheral interstitial prominence with superimposed groundglass opacity has worsened bilaterally when compared to the 01/30/2020 examination, most consis tent with worsening bilateral Covid pneumonia. Review of the osseous structures demonstrates no worrisome findings. No acute osseous abnormality is seen. IMPRESSION: No evidence for pulmonary arterial embolism. Worsening diffuse interstitial prominence wi th multifocal peripheral groundglass opacity, suspicious for worsening of bilateral Covid pneumonia. Follow-up imaging following treatment advised to document resolution.
[2020-02-24] MEDS ORDERED: Enoxaparin Sodium 100 MG/ML SYRINGE ONE (19:48)
[2020-02-24] MEDS ORDERED: Dexamethasone 10 MG/ML VIAL ONE (19:48)
[2020-02-24] MEDS ORDERED: Enoxaparin Sodium 30 MG/0.3 ML SYRINGE ONE (19:48)
[2020-02-24] MEDS ORDERED: Azithromycin 500 MG VIAL ONE (19:48)
[2020-02-24] MEDS ORDERED: cefTRIAXone\\ROCEPHIN 2 GM VIAL ONE (19:48)
== END 2020-02-24 22:07 | disposition left against medical advice (07) ==
LOC: ERS 17:25
DX: I20.0 Unstable angina (principal); U07.1 COVID-19; J12.82 Pneumonia due to coronavirus disease 2019; I25.2 Old myocardial infarction; E11.9 Type 2 diabetes mellitus without complications
CPT/HCPCS: 36415; 71045; 71275; 80053; 82550; 83690; 83880; 84484; 85025; 85379; 93005; 96365; 96372; 96375; J0456; J0696; J1100; J1650; Q9967

== ENCOUNTER 2020-02-25 02:23 | Observation (INO) | payer BC ==
[2020-02-25 03:18] LABS: #Lymphocytes 0.7 thou/uL (1.20-3.40); #Neutrophils 5.2 thou/uL (1.40-6.50); %Basophils 0.1 % (0.0-1.0); %Eosinophils 0.4 % (0.0-10.0); %Lymphocytes 11.3 % (21.0-51.0); %Monocytes 0.6 % (0.0-10.0); %Neutrophils 87.6 % (42.0-75.0); Hemoglobin 12.7 g/dL (14.0-18.0); Mean Corpuscular HGB CONC 33.6 g/dL (32.0-36.0); Mean Corpuscular Hemoglobin 30.9 pg (27.0-31.0); Mean Platelet Volume 7.2 fL (7.4-10.4); Platelet Count 197 thou/uL (130-400); RBC Distribution Width 13.8 % (11.5-14.5); Red Blood Cell (RBC) Count 4.11 mill/uL (4.70-6.10)
[2020-02-25 03:41] LABS: ALT (SGPT) 43 U/L (8-55); AST (SGOT) 25 U/L (5-34); Albumin 3.8 g/dL (3.4-4.8); Alkaline Phosphatase 92 U/L (40-110); Anion Gap 15 mmol/L (10-20); BUN (Urea Nitrogen) 19 mg/dL (8.4-25.7); Bilirubin, Total 0.7 mg/dL (0.2-1.2); Calc. Creatinine Clearance 0 mL/min (70-130); Calcium 8.6 mg/dL (7.8-10.44); Carbon Dioxide 20 mmol/L (23-31); Chloride 99 mmol/L (98-107); Globulin 3.3 g/dL (2.4-3.5); Potassium 5.1 mmol/L (3.5-5.1); Protein, Total 7.1 g/dL (5.8-8.1); Sodium 129 mmol/L (136-145)
[2020-02-25 03:44] LABS: Glucose 585 mg/dL (80-115)
[2020-02-25 05:55] VITALS: BMI 40.7
[2020-02-25 08:23] VITALS: TEMP 97.7
[2020-02-25 08:45] LABS: Troponin I Less than 0.010 ng/mL (< 0.028)
[2020-02-25] MEDS ORDERED: Insulin Glargine 30 UNITS in Pre-Filled Syringe 1 EACH SC SCH (11:06)
[2020-02-25] MEDS ORDERED: Dextrose 5% in Water 1,000 ML IV PRN (11:07)
[2020-02-25] MEDS ORDERED: Guaifenesin DM 100-10/5 ML UDCUP PO PRN (11:07)
[2020-02-25] MEDS ORDERED: Dextrose 50% Abboject 50 ML SYRINGE SLOW IVP PRN (11:07)
[2020-02-25] MEDS ORDERED: Senokot S 8.6-50 MG TAB PO PRN (11:07)
[2020-02-25] MEDS ORDERED: Acetaminophen 325 MG TAB PO PRN (11:07)
[2020-02-25] MEDS ORDERED: HumaLOG 300 UNITS/3 ML VIAL SC PRN ×2 (11:07)
[2020-02-25] MEDS ORDERED: Ondansetron PF 4 MG/2 ML Vial IVP PRN (11:07)
[2020-02-25] MEDS ORDERED: Nitroglycerin 0.4 MG TAB (25 Tab Bottle) SL PRN (11:09)
[2020-02-25 12:22] VITALS: BP 129/76
[2020-02-25] MEDS ORDERED: Albuterol Sulfate 2.5 mg/3 ml Neb NEB PRN (12:29)
[2020-02-25] MEDS ORDERED: metFORMIN 500 MG TAB PO SCH (17:00)
--- NOTE | 2020-02-25 17:05 | SS ---
DATE OF ADMISSION: 02/25/2020 DATE OF DISCHARGE: 02/25/2020 REASON FOR INITIAL HOSPITALIZATION: Shortness of breath with new diagnosis of coronavirus disease 2019 pneumonia. HISTORY OF PRESENTING ILLNESS: The patient gives history of having exertional shortness of breath, this just started this morning. He was positive for COVID-19 virus on the January 26 when he got hospitalized here for anterior wall STEMI. He has had stent placed to mid LAD. Mr. Perez did not have any cough, or upper respiratory symptoms then. He does not have them now either. He just has some exertional shortness of breath. No chest pain. He states he is very compliant with his discharge medication including aspirin and Brilinta. No complaints of fever or cough at present. PAST MEDICAL AND SURGICAL HISTORY: History of anterior wall STEMI with stent placed to mid LAD on [address] Soto. Hypertension, diabetes mellitus type 2, basal cell carcinoma of the skin. CURRENT MEDICATIONS: 1. Spironolactone 25 mg daily. 2. Aspirin 81 mg p.o. daily. 3. Brilinta 90 mg twice daily. 4. Atorvastatin 80 mg p.o. q.h.s. 5. Nitroglycerin sublingual. 6. Toprol-XL 50 mg daily. 7. Lisinopril 5 mg twice daily. ALLERGIES: NO KNOWN DRUG ALLERGIES. PERSONAL HISTORY: Does not abuse alcohol or drugs. No history of smoking. FAMILY HISTORY: Father in his 80s from lung cancer. Mother in her 40s from unknown cause. Patient has no children. He lives alone. All his other family members including brothers and sisters live in [place]. 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 CODE STATUS: Full. REVIEW OF SYSTEMS: CONSTITUTIONAL: Negative for weight loss or gain, ability to conduct usual activities. SKIN: Negative for rash, itching. EYES: Negative for double vision, pain. ENT/MOUTH: Negative for nose bleeding, neck stiffness, pain, tenderness. CARDIOVASCULAR: Negative for palpitations, dyspnea on exertion, orthopnea. RESPIRATORY: Negative for shortness of breath, wheezing, cough, hemoptysis, fever or night sweats. GASTROINTESTINAL: Negative for poor appetite, abdominal pain, heartburn, nausea, vomiting, constipation, or diarrhea. GENITOURINARY: Negative for urgency, frequency, dysuria, nocturia. MUSCULOSKELETAL: Negative for pain, swelling. NEUROLOGIC/PSYCHIATRIC: Negative for anxiety, depression. ALLERGY/IMMUNOLOGIC: Negative for skin rash, bleeding tendency. PHYSICAL EXAMINATION: GENERAL: The patient is a 59-year-old male, who is currently not in any acute distress. VITAL SIGNS: Blood pressure 144/68, pulse 66 per minute, respiratory rate 18 per minute, temperature 97.7 degrees Fahrenheit, saturating 96% on room air. NECK: Supple. No elevated JVD. HEENT: Eyes; extraocular muscles intact. Pupils reacting to light. Oral cavity, mucous membranes are moist. No exudates or congestion. CARDIOVASCULAR: S1-S2 heard, regular rhythm. RESPIRATORY: Air entry, 1+ bilateral. No rales or rhonchi. ABDOMEN: Soft. Bowel sounds heard. No tenderness, rigidity, or guarding. EXTREMITIES: No peripheral edema or calf tenderness. VASCULAR: Peripheral pulses 1+ bilateral. No ischemic ulcers or gangrene. CENTRAL NERVOUS SYSTEM: No gross focal motor deficits noted. Patient is alert, awake, oriented well. PSYCHIATRIC: Patient's mood is euthymic. No hallucinations or delusions. DIAGNOSTIC STUDIES: CT angio chest done showed no evidence of PE. There is diffuse interstitial prominence with multifocal peripheral ground-glass opacities suspicious for COVID pneumonia. H and H 12 and 37, platelet count 197, MCV 92, white count of 6. D-dimer 0.98. CRP less than 0.50. Ferritin 699. Serum glucose was 585 on admission, albumin 3.8. Troponin x2 negative. EKG done shows normal sinus rhythm at 78 beats per minute. There is Q-wave seen in V1, V2, V3 with poor R-wave progression. CLINICAL IMPRESSION AND PLAN: Patient will be shortly discharged home. His ambulatory SpO2 is more than 96%. The patient has no symptoms of active COVID infection. He is nearly 4 weeks out and CRP is less than 0.50. He has exertional shortness of breath due to peripheral infiltrates from COVID pneumonia. He is not requiring supplemental oxygen. He is not a candidate for Remdesivir due to 4 weeks from diagnosis and patient is not a candidate for steroids as he does not require supplemental oxygen. He is asymptomatic at present except for exertional shortness of breath. His EF on the cardiac cath was around 30% to 35%. His medications have been optimized by Dr. Soto during his last discharge. He had stopped taking metformin for his diabetes and it has been uncontrolled for which he will get 30 units of Lantus, one dose and will increase his metformin to 1 g twice daily. The patient is also given a prescription for DuoNebs and albuterol rescue inhaler as well. He is hemodynamically stable and will be shortly discharged home. The patient was given complete updates about current findings including pictures of his CAT scan shown to him at bedside. He is comfortable going home at present. Please note this is a same day admit and discharge under observation status. Job ID: [id number]
[2020-02-25] MEDS ORDERED: Atorvastatin Calcium 40 MG TAB PO SCH (21:00)
[2020-02-25] MEDS ORDERED: TICAGRELOR 90 MG TABLET PO SCH (21:00)
[2020-02-25] MEDS ORDERED: Famotidine 20 MG TAB PO SCH (21:00)
[2020-02-25] MEDS ORDERED: Lisinopril 5 MG TAB PO SCH (21:00)
[2020-02-26] MEDS ORDERED: Spironolactone 25 MG TAB PO SCH (08:00)
[2020-02-26] MEDS ORDERED: Aspirin Chewable 81 MG TAB PO SCH (09:00)
[2020-02-26] MEDS ORDERED: Enoxaparin Sodium 40 MG/0.4 ML SYRINGE SC SCH (09:00)
--- NOTE | 2020-02-29 10:33 | EKG ---
Test Reason : Blood Pressure : / mmHG Vent. Rate : 078 BPM Atrial Rate : 078 BPM P-R Int : 192 ms QRS Dur : 090 ms QT Int : 440 ms P-R-T Axes : 025 075 089 degrees QTc Int : 501 ms Normal sinus rhythm Anterior infarct , age undetermined T wave abnormality, consider lateral ischemia Prolonged QT Abnormal ECG Confirmed by JOEL RANDALL M.D. ([id number]), script editor KRYSTLE GIORDANO ([id number]) on 02/29/2020 10:33:10 AM Referred By: Confirmed By:JOEL RANDALL M.D.
== END 2020-02-25 14:05 | disposition home or self-care (01) ==
LOC: ERS 02:23 → 2SW 05:53
PROVIDERS: ADMIT Internal Medicine; ATTEND Internal Medicine
DX: U07.1 COVID-19 (principal); J12.82 Pneumonia due to coronavirus disease 2019; I10 Essential (primary) hypertension; E11.9 Type 2 diabetes mellitus without complications; I25.2 Old myocardial infarction; Z79.02 Long term (current) use of antithrombotics/antiplatelets; Z79.82 Long term (current) use of aspirin; Z79.899 Other long term (current) drug therapy; Z95.5 Presence of coronary angioplasty implant and graft
CPT/HCPCS: 36415; 36416; 80053; 82728; 84484; 85025; 86140; 93005; G0378; J1815

== ENCOUNTER 2022-10-10 15:17 | Inpatient (IN) | payer SELFPAY, BC ==
[2022-10-10 15:51] LABS: #Basophils 0.1 thou/uL (0.0-0.2); #Neutrophils 14.1 thou/uL (1.40-6.50); %Basophils 0.4 % (0.0-1.0); %Lymphocytes 5.3 % (21.0-51.0); %Monocytes 6.2 % (0.0-10.0); %Neutrophils 87.5 % (42.0-75.0); Hematocrit 39.6 % (42.0-52.0); Hemoglobin 13.1 g/dL (14.0-18.0); Mean Corpuscular HGB CONC 33.1 g/dL (32.0-36.0); Mean Corpuscular Hemoglobin 30.3 pg (27.0-31.0); Mean Corpuscular Volume 91.5 fl (78.0-98.0); Mean Platelet Volume 9.3 fL (7.4-10.4); Platelet Count 306 10x3/uL (130-400); RBC Distribution Width 12.5 % (11.5-14.5); Red Blood Cell (RBC) Count 4.33 mill/uL (4.70-6.10); White Blood Cell (WBC) Count 16.1 10x3/uL (4.8-10.8)
[2022-10-10 16:17] LABS: ALT (SGPT) 11 U/L (8-55); AST (SGOT) 9 U/L (5-34); Albumin 3.7 g/dL (3.4-4.8); Alkaline Phosphatase 109 U/L (40-110); Anion Gap 15 mmol/L (10-20); BUN (Urea Nitrogen) 14 mg/dL (8.4-25.7); Bilirubin, Total 0.7 mg/dL (0.2-1.2); Calc. Creatinine Clearance 0 mL/min (70-130); Calcium 9.6 mg/dL (7.8-10.44); Carbon Dioxide 24 mmol/L (23-31); Chloride 98 mmol/L (98-107); Estimated GFR 66; Globulin 4.1 g/dL (2.4-3.5); Potassium 3.9 mmol/L (3.5-5.1); Protein, Total 7.8 g/dL (5.8-8.1); Sodium 133 mmol/L (136-145)
[2022-10-10 16:25] LABS: Glucose 413 mg/dL (80-115)
[2022-10-10 17:00] LABS: Actual Bicarbonate (HCO3v) 23.8 mEq/L (22-28); Base Excess 0.6 mEq/L (-2.0 to +3.0); Calcium, Ionized (venous) 1.06 mmol/L (1.16-1.32); Chloride (VBG) 97 mmol/L (98-106); Hematocrit-VBG 40 % (42.0-52.0); Hemoglobin (Hb) 13.7 g/dL (13.1-17.2); Potassium (VBG) 4.17 mmol/L (3.70-5.30); Sodium 132.6 mmol/L (133-146); pH (venous) 7.462 (7.32-7.43)
[2022-10-10] MEDS ORDERED: Cefepime 2 GM VIAL ONE (17:09)
[2022-10-10 17:10] LABS: Phosphorus 2.6 mg/dL (2.3-4.7)
[2022-10-10 17:17] LABS: Magnesium 1.9 mg/dL (1.6-2.6)
[2022-10-10] MEDS ORDERED: VANCOMYCIN 2 GRAM/500 ML BAG 2 GM in Premix Bag 1 BAG IVPB SCH (18:30)
[2022-10-10 20:33] LABS: Lactic Acid 1.4 mmol/L (0.5-2.2)
[2022-10-10] MEDS ORDERED: Ondansetron ODT 4 MG TAB PO PRN (21:20)
[2022-10-10] MEDS ORDERED: Acetaminophen 325 MG TAB PO PRN (21:20)
[2022-10-10] MEDS ORDERED: Acetaminophen 650 MG Suppository PR PRN (21:20)
[2022-10-10] MEDS ORDERED: Ondansetron PF 4 MG/2 ML Vial IVP PRN (21:20)
[2022-10-10] MEDS ORDERED: Glucagon 1 MG/ML KIT IM PRN (21:26)
[2022-10-10] MEDS ORDERED: Dextrose 5% in Water 1,000 ML IV PRN (21:26)
[2022-10-10] MEDS ORDERED: Dextrose 50% Abboject 50 ML SYRINGE SLOW IVP PRN (21:26)
[2022-10-11] MEDS: HumaLOG 300 UNITS/3 ML VIAL SC PRN ×2 (00:41→17:46)
[2022-10-11] MEDS ORDERED: Insulin Glargine 30 UNITS/0.3 ML VIAL SC SCH ×2 (02:00→21:00)
[2022-10-11] MEDS ORDERED: VANCOMYCIN 1.25 GM/250 ML BAG 1.25 GM in Premix Bag 1 BAG IVPB SCH (05:00)
[2022-10-11 05:44] LABS: #Basophils 0.1 thou/uL (0.0-0.2); #Eosinphils 0.1 thou/uL (0.0-0.7); #Monocytes 1.7 thou/uL (0.11-0.59); #Neutrophils 13.6 thou/uL (1.40-6.50); %Basophils 0.7 % (0.0-1.0); %Eosinophils 0.3 % (0.0-10.0); %Lymphocytes 10.1 % (21.0-51.0); %Monocytes 9.6 % (0.0-10.0); %Neutrophils 78.8 % (42.0-75.0); Hematocrit 37.4 % (42.0-52.0); Hemoglobin 12.3 g/dL (14.0-18.0); Mean Corpuscular HGB CONC 32.9 g/dL (32.0-36.0); Mean Corpuscular Hemoglobin 30.2 pg (27.0-31.0); Mean Corpuscular Volume 91.9 fl (78.0-98.0); Mean Platelet Volume 9.2 fL (7.4-10.4); Platelet Count 308 10x3/uL (130-400); RBC Distribution Width 12.7 % (11.5-14.5); Red Blood Cell (RBC) Count 4.07 mill/uL (4.70-6.10); White Blood Cell (WBC) Count 17.3 10x3/uL (4.8-10.8)
[2022-10-11 06:07] LABS: Anion Gap 12 mmol/L (10-20); BUN (Urea Nitrogen) 11 mg/dL (8.4-25.7); Calc. Creatinine Clearance 128 mL/min (70-130); Calcium 8.8 mg/dL (7.8-10.44); Carbon Dioxide 25 mmol/L (23-31); Chloride 98 mmol/L (98-107); Estimated GFR 70; Glucose 316 mg/dL (80-115); Potassium 3.7 mmol/L (3.5-5.1); Sodium 131 mmol/L (136-145)
[2022-10-11] MEDS ORDERED: Piperacillin/Tazobactam 3.375 GM in Sodium Chloride 0.9% 100 ML IVPB SCH (07:15)
[2022-10-11] MEDS: Sodium Chloride 0.9% 1,000 ML IV SCH ×2 (07:21→13:53)
[2022-10-11] MEDS: VANCOMYCIN 2 GRAM/500 ML BAG 2 GM in Premix Bag 1 BAG IVPB SCH ×2 (09:44→21:12)
[2022-10-11] MEDS ORDERED: Midazolam HCl 2 mg/2 ml Vial ONE (11:29)
[2022-10-11] MEDS ORDERED: fentaNYL 50 mcg/mL 1 mL Vial ONE (11:29)
[2022-10-11] MEDS ORDERED: Ketamine 50 MG/ML (10ML VIAL) ONE (11:30)
[2022-10-11] MEDS ORDERED: PROPOFOL 40 ML ONE (11:30)
[2022-10-11] MEDS ORDERED: PROPOFOL 200 MG/20 ML VIAL ONE (11:41)
[2022-10-11] MEDS ORDERED: Ondansetron PF 4 MG/2 ML Vial ONE (11:41)
[2022-10-11] MEDS ORDERED: PHENYLEPHRINE-NS 100 MCG/ML 10 ML SYRINGE ONE (11:41)
[2022-10-11] MEDS ORDERED: Lidocaine 1% PF 5 ML VIAL ONE (11:41)
[2022-10-11] MEDS ORDERED: Ondansetron HCl/PF 4 MG/2 ML Vial IVP PRN (12:20)
[2022-10-11] MEDS ORDERED: Promethazine HCl 25 MG/ML VIAL IM PRN (12:20)
[2022-10-11] MEDS ORDERED: Famotidine/PF 20 mg/2ml Vial ONE (12:54)
[2022-10-11] MEDS ORDERED: fentaNYL PF 100 MCG/2 ML SYRINGE ONE (12:55)
[2022-10-11] MEDS: Piperacillin/Tazobactam 3.375 GM in Sodium Chloride 0.9% 100 ML IVPB SCH ×2 (13:53→21:05)
[2022-10-11] MEDS: Aspirin 81 mg Enteric Coated Tablet PO SCH (13:59)
[2022-10-11] MEDS ORDERED: Ibuprofen 600 MG TAB PO PRN (17:24)
[2022-10-11] MEDS: Acetaminophen 500 MG TAB PO SCH (17:52)
[2022-10-11] MEDS ORDERED: Morphine 2 MG/ML VIAL SLOW IVP PRN (18:57)
[2022-10-11] MEDS: traMADol HCl 50 MG TAB PO PRN (21:06)
[2022-10-11] MEDS: Gabapentin 300 MG CAP PO SCH (21:06)
[2022-10-12] MEDS: Acetaminophen 500 MG TAB PO SCH ×5 (00:52→23:56)
[2022-10-12] MEDS: Piperacillin/Tazobactam 3.375 GM in Sodium Chloride 0.9% 100 ML IVPB SCH ×3 (04:46→21:27)
[2022-10-12] MEDS: HumaLOG 300 UNITS/3 ML VIAL SC PRN ×3 (06:11→17:59)
[2022-10-12 07:07] LABS: #Basophils 0.1 thou/uL (0.0-0.2); #Eosinphils 0.1 thou/uL (0.0-0.7); #Monocytes 0.6 thou/uL (0.11-0.59); #Neutrophils 6.5 thou/uL (1.40-6.50); %Basophils 0.9 % (0.0-1.0); %Eosinophils 1.6 % (0.0-10.0); %Lymphocytes 14.2 % (21.0-51.0); %Neutrophils 75.9 % (42.0-75.0); Hematocrit 32.9 % (42.0-52.0); Hemoglobin 10.7 g/dL (14.0-18.0); Mean Corpuscular HGB CONC 32.5 g/dL (32.0-36.0); Mean Corpuscular Hemoglobin 30.3 pg (27.0-31.0); Mean Corpuscular Volume 93.2 fl (78.0-98.0); Mean Platelet Volume 9.4 fL (7.4-10.4); Platelet Count 230 10x3/uL (130-400); RBC Distribution Width 12.6 % (11.5-14.5); Red Blood Cell (RBC) Count 3.53 mill/uL (4.70-6.10); White Blood Cell (WBC) Count 8.6 10x3/uL (4.8-10.8)
[2022-10-12 07:15] LABS: Hemoglobin A1c 10.9 % (4.0-6.0)
[2022-10-12 07:34] LABS: Anion Gap 13 mmol/L (10-20); BUN (Urea Nitrogen) 11 mg/dL (8.4-25.7); Calc. Creatinine Clearance 147 mL/min (70-130); Calcium 8.2 mg/dL (7.8-10.44); Carbon Dioxide 21 mmol/L (23-31); Chloride 104 mmol/L (98-107); Estimated GFR 83; Glucose 236 mg/dL (80-115); Potassium 3.9 mmol/L (3.5-5.1); Sodium 134 mmol/L (136-145)
[2022-10-12] MEDS: Sodium Chloride 0.9% 1,000 ML IV SCH ×2 (07:46→13:13)
[2022-10-12] MEDS: Aspirin 81 mg Enteric Coated Tablet PO SCH (08:17)
[2022-10-12] MEDS: VANCOMYCIN 2 GRAM/500 ML BAG 2 GM in Premix Bag 1 BAG IVPB SCH (08:17)
[2022-10-12] MEDS: Gabapentin 300 MG CAP PO SCH ×3 (08:17→21:28)
[2022-10-12] MEDS: Insulin Glargine 30 UNITS/0.3 ML VIAL SC SCH (21:29)
[2022-10-12] MEDS ORDERED: Vancomycin HCl 750 MG VIAL ONE (22:26)
[2022-10-13] MEDS ORDERED: Sodium Bicarb 50 MEQ/50 ML VIAL ONE (00:25)
[2022-10-13] MEDS: VANCOMYCIN 2 GRAM/500 ML BAG 2 GM in Premix Bag 1 BAG IVPB SCH ×2 (00:42→14:18)
[2022-10-13] MEDS: Sodium Chloride 0.9% 1,000 ML IV SCH ×2 (04:23→10:48)
[2022-10-13] MEDS: Piperacillin/Tazobactam 3.375 GM in Sodium Chloride 0.9% 100 ML IVPB SCH ×3 (04:24→20:07)
[2022-10-13] MEDS: Acetaminophen 500 MG TAB PO SCH ×3 (06:03→18:41)
[2022-10-13] MEDS: HumaLOG 300 UNITS/3 ML VIAL SC PRN ×3 (06:35→17:12)
[2022-10-13 07:11] LABS: #Basophils 0.1 thou/uL (0.0-0.2); #Eosinphils 0.2 thou/uL (0.0-0.7); #Monocytes 0.6 thou/uL (0.11-0.59); #Neutrophils 5.4 thou/uL (1.40-6.50); %Eosinophils 2.1 % (0.0-10.0); %Lymphocytes 18.5 % (21.0-51.0); %Monocytes 7.3 % (0.0-10.0); %Neutrophils 70.6 % (42.0-75.0); Hematocrit 32.1 % (42.0-52.0); Hemoglobin 10.7 g/dL (14.0-18.0); Mean Corpuscular HGB CONC 33.3 g/dL (32.0-36.0); Mean Corpuscular Hemoglobin 30.9 pg (27.0-31.0); Mean Corpuscular Volume 92.8 fl (78.0-98.0); Mean Platelet Volume 9.4 fL (7.4-10.4); Platelet Count 252 10x3/uL (130-400); RBC Distribution Width 12.5 % (11.5-14.5); Red Blood Cell (RBC) Count 3.46 mill/uL (4.70-6.10); White Blood Cell (WBC) Count 7.7 10x3/uL (4.8-10.8)
[2022-10-13 07:31] LABS: Anion Gap 11 mmol/L (10-20); BUN (Urea Nitrogen) 8 mg/dL (8.4-25.7); Calc. Creatinine Clearance 156 mL/min (70-130); Calcium 8.4 mg/dL (7.8-10.44); Carbon Dioxide 24 mmol/L (23-31); Chloride 105 mmol/L (98-107); Estimated GFR 89; Glucose 205 mg/dL (80-115); Potassium 3.7 mmol/L (3.5-5.1); Sodium 136 mmol/L (136-145)
[2022-10-13] MEDS: Aspirin 81 mg Enteric Coated Tablet PO SCH (10:34)
[2022-10-13] MEDS: Gabapentin 300 MG CAP PO SCH ×3 (10:35→20:07)
[2022-10-13] MEDS: Insulin Glargine 30 UNITS/0.3 ML VIAL SC SCH (21:45)
[2022-10-14] MEDS: Sodium Chloride 0.9% 1,000 ML IV SCH ×2 (00:34→11:45)
[2022-10-14] MEDS: VANCOMYCIN 2 GRAM/500 ML BAG 2 GM in Premix Bag 1 BAG IVPB SCH ×2 (00:34→14:05)
[2022-10-14] MEDS: Acetaminophen 500 MG TAB PO SCH ×5 (00:35→23:59)
[2022-10-14] MEDS: Piperacillin/Tazobactam 3.375 GM in Sodium Chloride 0.9% 100 ML IVPB SCH ×3 (03:36→21:00)
[2022-10-14 05:52] LABS: #Basophils 0.1 thou/uL (0.0-0.2); #Eosinphils 0.1 thou/uL (0.0-0.7); #Monocytes 0.5 thou/uL (0.11-0.59); #Neutrophils 5.4 thou/uL (1.40-6.50); %Eosinophils 1.5 % (0.0-10.0); %Lymphocytes 22.5 % (21.0-51.0); %Monocytes 6.2 % (0.0-10.0); %Neutrophils 68.4 % (42.0-75.0); Hematocrit 33.2 % (42.0-52.0); Hemoglobin 10.7 g/dL (14.0-18.0); Mean Corpuscular HGB CONC 32.2 g/dL (32.0-36.0); Mean Corpuscular Hemoglobin 30.1 pg (27.0-31.0); Mean Corpuscular Volume 93.5 fl (78.0-98.0); Mean Platelet Volume 9.2 fL (7.4-10.4); Platelet Count 266 10x3/uL (130-400); RBC Distribution Width 12.6 % (11.5-14.5); Red Blood Cell (RBC) Count 3.55 mill/uL (4.70-6.10); White Blood Cell (WBC) Count 7.9 10x3/uL (4.8-10.8)
[2022-10-14 06:09] LABS: Manual Diff?? YES
[2022-10-14 06:20] LABS: Anion Gap 14 mmol/L (10-20); BUN (Urea Nitrogen) 7 mg/dL (8.4-25.7); Calc. Creatinine Clearance 174 mL/min (70-130); Calcium 8.6 mg/dL (7.8-10.44); Carbon Dioxide 20 mmol/L (23-31); Chloride 107 mmol/L (98-107); Estimated GFR 97; Glucose 117 mg/dL (80-115); Sodium 137 mmol/L (136-145)
[2022-10-14 07:58] LABS: Band 1 % (5-11); CellaVision Operator ID LAB.GE; Lymphocytes 19 % (21-51); Monocytes 2 % (0-10); Neutrophil 76 % (42-75); Platelet Adequacy Comment Platelets Normal; Polychromasia SLIGHT = 2-3 cells HPF (0-2); Total Cell Count 100
[2022-10-14] MEDS ORDERED: Fluconazole In NaCl,Iso-Osm 400 MG in Premix Bag 1 BAG IVPB SCH (09:00)
[2022-10-14] MEDS: Aspirin 81 mg Enteric Coated Tablet PO SCH (10:22)
[2022-10-14] MEDS: Gabapentin 300 MG CAP PO SCH ×3 (10:23→21:01)
[2022-10-14 10:48] VITALS: BMI 40.7
[2022-10-14] MEDS: HumaLOG 300 UNITS/3 ML VIAL SC PRN (18:21)
[2022-10-14] MEDS: Atorvastatin Calcium 40 MG TAB PO SCH (21:01)
[2022-10-14] MEDS: Insulin Glargine 30 UNITS/0.3 ML VIAL SC SCH (21:02)
[2022-10-15 00:37] LABS: Vancomycin, Trough 23.5 ug/mL
[2022-10-15] MEDS: Piperacillin/Tazobactam 3.375 GM in Sodium Chloride 0.9% 100 ML IVPB SCH ×3 (04:08→21:42)
[2022-10-15] MEDS ORDERED: hydrALAZINE 20 MG/ML VIAL SLOW IVP PRN (04:17)
[2022-10-15] MEDS: Acetaminophen 500 MG TAB PO SCH ×3 (06:06→17:49)
[2022-10-15 06:19] LABS: #Basophils 0.1 thou/uL (0.0-0.2); #Eosinphils 0.2 thou/uL (0.0-0.7); #Monocytes 0.6 thou/uL (0.11-0.59); %Basophils 0.9 % (0.0-1.0); %Eosinophils 2.5 % (0.0-10.0); %Lymphocytes 18.5 % (21.0-51.0); %Neutrophils 70.7 % (42.0-75.0); Hematocrit 34.1 % (42.0-52.0); Hemoglobin 11.1 g/dL (14.0-18.0); Mean Corpuscular HGB CONC 32.6 g/dL (32.0-36.0); Mean Corpuscular Hemoglobin 30.3 pg (27.0-31.0); Mean Corpuscular Volume 93.2 fl (78.0-98.0); Mean Platelet Volume 9.2 fL (7.4-10.4); Platelet Count 287 10x3/uL (130-400); RBC Distribution Width 12.7 % (11.5-14.5); Red Blood Cell (RBC) Count 3.66 mill/uL (4.70-6.10); White Blood Cell (WBC) Count 8.5 10x3/uL (4.8-10.8)
[2022-10-15 06:50] LABS: Anion Gap 10 mmol/L (10-20); BUN (Urea Nitrogen) 7 mg/dL (8.4-25.7); Calc. Creatinine Clearance 136 mL/min (70-130); Calcium 8.8 mg/dL (7.8-10.44); Carbon Dioxide 24 mmol/L (23-31); Chloride 106 mmol/L (98-107); Estimated GFR 76; Glucose 154 mg/dL (80-115); Potassium 3.9 mmol/L (3.5-5.1); Sodium 136 mmol/L (136-145)
[2022-10-15] MEDS: Lisinopril 20 MG TAB PO SCH (08:52)
[2022-10-15] MEDS: Aspirin 81 mg Enteric Coated Tablet PO SCH (08:52)
[2022-10-15] MEDS: Gabapentin 300 MG CAP PO SCH ×3 (08:54→21:42)
[2022-10-15] MEDS: HumaLOG 300 UNITS/3 ML VIAL SC PRN ×2 (12:31→17:50)
[2022-10-15] MEDS: Atorvastatin Calcium 40 MG TAB PO SCH (21:42)
[2022-10-15] MEDS: Insulin Glargine 30 UNITS/0.3 ML VIAL SC SCH (21:56)
[2022-10-16] MEDS: Acetaminophen 500 MG TAB PO SCH ×4 (02:35→18:38)
[2022-10-16] MEDS: Piperacillin/Tazobactam 3.375 GM in Sodium Chloride 0.9% 100 ML IVPB SCH ×3 (05:21→22:15)
[2022-10-16] MEDS: Lisinopril 20 MG TAB PO SCH ×2 (09:15→22:20)
[2022-10-16] MEDS: Aspirin 81 mg Enteric Coated Tablet PO SCH (09:15)
[2022-10-16] MEDS: Gabapentin 300 MG CAP PO SCH ×3 (09:16→22:15)
[2022-10-16] MEDS ORDERED: Amlodipine 5 MG TAB PO SCH (14:30)
[2022-10-16] MEDS ORDERED: Insulin Glargine 30 UNITS/0.3 ML VIAL SC SCH (14:30)
[2022-10-16] MEDS: Atorvastatin Calcium 40 MG TAB PO SCH (22:19)
[2022-10-16] MEDS: Insulin Glargine 30 UNITS/0.3 ML VIAL SC SCH (22:21)
[2022-10-16] MEDS: HumaLOG 300 UNITS/3 ML VIAL SC PRN (22:22)
[2022-10-17] MEDS: Acetaminophen 500 MG TAB PO SCH ×4 (00:47→18:21)
[2022-10-17] MEDS: Piperacillin/Tazobactam 3.375 GM in Sodium Chloride 0.9% 100 ML IVPB SCH ×3 (05:16→22:15)
[2022-10-17 06:31] LABS: #Basophils 0.1 thou/uL (0.0-0.2); #Eosinphils 0.2 thou/uL (0.0-0.7); #Monocytes 0.6 thou/uL (0.11-0.59); #Neutrophils 4.5 thou/uL (1.40-6.50); %Basophils 1.2 % (0.0-1.0); %Eosinophils 2.4 % (0.0-10.0); %Lymphocytes 26.8 % (21.0-51.0); %Monocytes 8.4 % (0.0-10.0); %Neutrophils 60.4 % (42.0-75.0); Hematocrit 37.2 % (42.0-52.0); Hemoglobin 11.9 g/dL (14.0-18.0); Mean Corpuscular Hemoglobin 29.8 pg (27.0-31.0); Mean Corpuscular Volume 93.2 fl (78.0-98.0); Mean Platelet Volume 9.1 fL (7.4-10.4); Platelet Count 339 10x3/uL (130-400); RBC Distribution Width 12.9 % (11.5-14.5); Red Blood Cell (RBC) Count 3.99 mill/uL (4.70-6.10); White Blood Cell (WBC) Count 7.5 10x3/uL (4.8-10.8)
[2022-10-17 06:58] LABS: Anion Gap 14 mmol/L (10-20); BUN (Urea Nitrogen) 12 mg/dL (8.4-25.7); Calc. Creatinine Clearance 126 mL/min (70-130); Calcium 9.4 mg/dL (7.8-10.44); Carbon Dioxide 25 mmol/L (23-31); Cardiac Risk 3.9 (Less than 4.5); Chloride 102 mmol/L (98-107); Cholesterol 129 mg/dl (< 200 Desired); Estimated GFR 70; Glucose 186 mg/dL (80-115); HDL Cholesterol 33 mg/dL (>60 Neg Risk); LDL Cholesterol, Calculated 75 mg/dL; Potassium 4.1 mmol/L (3.5-5.1); Sodium 137 mmol/L (136-145); Triglycerides 103 mg/dL (Less than 150)
[2022-10-17] MEDS ORDERED: Amlodipine 5 MG TAB PO SCH ×2 (09:00→15:00)
[2022-10-17] MEDS: Aspirin 81 mg Enteric Coated Tablet PO SCH (09:13)
[2022-10-17] MEDS: Lisinopril 20 MG TAB PO SCH ×2 (09:14→22:16)
[2022-10-17] MEDS: Gabapentin 300 MG CAP PO SCH ×3 (09:14→22:17)
[2022-10-17] MEDS: Insulin Glargine 30 UNITS/0.3 ML VIAL SC SCH ×2 (09:14→22:15)
[2022-10-17] MEDS: traMADol HCl 50 MG TAB PO PRN ×2 (11:57→22:24)
[2022-10-17] MEDS ORDERED: Triamterene/Hydrochlorothiazide 37.5 mg/25 mg Tablet PO SCH (15:00)
[2022-10-17 16:44] LABS: Reference Lab Name LABCORP
[2022-10-17] MEDS: HumaLOG 300 UNITS/3 ML VIAL SC PRN (16:58)
[2022-10-17] MEDS: Floranex 1 GM Packet PO SCH ×2 (18:17→22:16)
[2022-10-17] MEDS: Atorvastatin Calcium 40 MG TAB PO SCH (22:16)
[2022-10-18] MEDS: Acetaminophen 500 MG TAB PO SCH ×3 (00:37→12:06)
[2022-10-18] MEDS: Piperacillin/Tazobactam 3.375 GM in Sodium Chloride 0.9% 100 ML IVPB SCH ×2 (05:13→12:06)
[2022-10-18] MEDS: traMADol HCl 50 MG TAB PO PRN (05:15)
[2022-10-18 06:20] LABS: #Basophils 0.1 thou/uL (0.0-0.2); #Eosinphils 0.2 thou/uL (0.0-0.7); #Monocytes 0.7 thou/uL (0.11-0.59); #Neutrophils 4.4 thou/uL (1.40-6.50); %Basophils 1.5 % (0.0-1.0); %Eosinophils 2.7 % (0.0-10.0); %Lymphocytes 29.3 % (21.0-51.0); %Monocytes 9.1 % (0.0-10.0); %Neutrophils 55.4 % (42.0-75.0); Hematocrit 35.9 % (42.0-52.0); Hemoglobin 11.3 g/dL (14.0-18.0); Mean Corpuscular HGB CONC 31.5 g/dL (32.0-36.0); Mean Corpuscular Hemoglobin 29.7 pg (27.0-31.0); Mean Corpuscular Volume 94.2 fl (78.0-98.0); Mean Platelet Volume 8.9 fL (7.4-10.4); Platelet Count 291 10x3/uL (130-400); RBC Distribution Width 12.9 % (11.5-14.5); Red Blood Cell (RBC) Count 3.81 mill/uL (4.70-6.10); White Blood Cell (WBC) Count 7.9 10x3/uL (4.8-10.8)
[2022-10-18 06:41] LABS: Anion Gap 13 mmol/L (10-20); BUN (Urea Nitrogen) 14 mg/dL (8.4-25.7); Calc. Creatinine Clearance 124 mL/min (70-130); Calcium 9.4 mg/dL (7.8-10.44); Carbon Dioxide 24 mmol/L (23-31); Chloride 102 mmol/L (98-107); Estimated GFR 68; Glucose 147 mg/dL (80-115); Potassium 4.8 mmol/L (3.5-5.1); Sodium 134 mmol/L (136-145)
[2022-10-18] MEDS ORDERED: Amlodipine 10 MG TAB PO SCH (09:00)
[2022-10-18] MEDS ORDERED: Triamterene/Hydrochlorothiazide 37.5 mg/25 mg Tablet PO SCH (09:00)
[2022-10-18 09:20] VITALS: TEMP 97.5
[2022-10-18] MEDS: Gabapentin 300 MG CAP PO SCH ×2 (10:02→16:02)
[2022-10-18] MEDS: Floranex 1 GM Packet PO SCH ×2 (10:02→16:09)
[2022-10-18] MEDS: Lisinopril 20 MG TAB PO SCH (10:04)
[2022-10-18] MEDS: Insulin Glargine 30 UNITS/0.3 ML VIAL SC SCH (10:07)
[2022-10-18] MEDS: Aspirin 81 mg Enteric Coated Tablet PO SCH (10:07)
[2022-10-18] MEDS: HumaLOG 300 UNITS/3 ML VIAL SC PRN (13:10)
[2022-10-18 16:00] LABS: Campy jejuni + coli by PCR Negative (Negative); STEC Shiga Toxin 1+2 Negative (Negative); Salmonella spp. by PCR Negative (Negative); Shigella spp + EIEC by PCR Negative (Negative)
[2022-10-18 16:24] VITALS: BP 134/66
== END 2022-10-18 16:48 | disposition home health service (06) | DRG 854 ==
LOC: ERS 15:17 → SJJU 21:03
PROVIDERS: ADMIT Student in an Organized Health Care Education/Training Program; ATTEND Internal Medicine
PROC: 4A043R1 Measurement of Venous Saturation, Peripheral, Percutaneous Approach (ICD-10-PCS; 2022-10-10)
PROC: 0Y6P0Z1 Detachment at Right 1st Toe, High, Open Approach (ICD-10-PCS; principal; 2022-10-11)
PROC: 0Y6N0Z9 Detachment at Left Foot, Partial 1st Ray, Open Approach (ICD-10-PCS; 2022-10-11)
DX: A41.9 Sepsis, unspecified organism (principal); E11.52 Type 2 diabetes mellitus with diabetic peripheral angiopathy with gangrene; L03.115 Cellulitis of right lower limb; M86.8X7 Other osteomyelitis, ankle and foot; L03.116 Cellulitis of left lower limb; Z68.41 Body mass index [BMI] 40.0-44.9, adult; E87.1 Hypo-osmolality and hyponatremia; E11.69 Type 2 diabetes mellitus with other specified complication; E11.622 Type 2 diabetes mellitus with other skin ulcer; E11.628 Type 2 diabetes mellitus with other skin complications; L97.529 Non-pressure chronic ulcer of other part of left foot with unspecified severity; I25.10 Atherosclerotic heart disease of native coronary artery without angina pectoris; E66.01 Morbid (severe) obesity due to excess calories; E88.81 Metabolic syndrome and other insulin resistance; I10 Essential (primary) hypertension; E78.00 Pure hypercholesterolemia, unspecified; L08.89 Other specified local infections of the skin and subcutaneous tissue; A49.01 Methicillin susceptible Staphylococcus aureus infection, unspecified site; B37.9 Candidiasis, unspecified; Z98.890 Other specified postprocedural states; Z85.828 Personal history of other malignant neoplasm of skin; Z91.148 Patient's other noncompliance with medication regimen for other reason; I25.2 Old myocardial infarction; Z95.5 Presence of coronary angioplasty implant and graft; Z79.84 Long term (current) use of oral hypoglycemic drugs; Z79.899 Other long term (current) drug therapy; Z86.16 Personal history of COVID-19
CPT/HCPCS: 36415; 36416; 80048; 80053; 80061; 80202; 82010; 82805; 83036; 83605; 83735; 84100; 84443; 85025; 86140; 87040; 87070; 87076; 87077; 87149; 87186; 87205; 87324; 87449; 87493; 87505; 88305; 88311; 96365; 96366; 96367; 97139; J0692; J1450; J1650; J1815; J2250; J2272; J2405; J2543; J2704; J3010; J3370; J3490; J7050; S0028